=== PATIENT | female | born 1940 | race Caucasian/White ===

== ENCOUNTER → 2016-06-01 | Outpatient (CLI) | payer BC ==
[~2016-06-01] MED LIST: ASPI81TA28 PO; ATOR-22 PO; BUPR-79 PO; BUSP-8 PO; CARV6.252 PO; CMD4 PO; CPR500 PO; FLUO10CA48 PO; IMD/2 PO; LISI-461 PO; OMEP20TA PO; OXYC5TAB PO; THIA50TA3 PO
--- NOTE | 2016-06-01 12:51 | MAMMOGRAPHY REPORT ---
BILATERAL DIGITAL SCREENING MAMMOGRAM WITH CAD: 06/01/2016 CLINICAL HISTORY: Routine screening. Patient has no complaints. TECHNIQUE: Current study was also evaluated with a Computer Aided Detection (CAD) system. Bilatera l CC and MLO views were obtained. COMPARISON: Comparison is made to exams dated: 05/17/2014 mammogram, 05/14/2013 mammogram, 05/12/2012 mammogram, 05/04/2010 mammogram, 05/23/2015 mammogram, and 05/10/2011 mammogram - [facility]. BREAST COMPOSITION: There are scattered areas of fibroglandular density in both breasts. FINDINGS: No suspicious masses, calcifications, or areas of architectural distortion are noted in e ither breast. There has been no significant interval change compared to prior exams. Bilateral margot gn appearing calcifications are not significantly changed. A pacemaker overlies the left pectoralis muscle and obscures portions of the left superior posterior breast on the MLO view. IMPRESSION: ACR BI-RADS CATEGORY 2: BENIGN There is no mammographic evidence of malignancy. A 1 year screening mammogram is recommended. The p atient will receive written notification of the results. Approximately 10% of breast cancers are not detected with mammography. A negative mammographic repor t should not delay biopsy if a clinically suggestive mass is present. Lashawn Quach M.D. /:06/01/2016 12:44:20 Truck Trailer Final Inspector: Gena Rosa, [facility] letter sent: Normal 1/2 BI-RADS Code: ACR BI-RADS Category 2: Benign
== END | disposition home or self-care (01) ==
LOC: C.MAMM 11:04
PROVIDERS: ATTEND Internal Medicine
DX: Z12.31 Encounter for screening mammogram for malignant neoplasm of breast (principal)

== ENCOUNTER → 2017-06-03 | Outpatient (CLI) | payer BC ==
--- NOTE | 2017-06-03 15:04 | MAMMOGRAPHY REPORT ---
BILATERAL DIGITAL SCREENING MAMMOGRAM TOMOSYNTHESIS WITH CAD: 06/03/2017 CLINICAL HISTORY: Routine screening. TECHNIQUE: Breast tomosynthesis in addition to standard 2D mammography was performed. Current study was also evaluated with a Computer Aided Detection (CAD) system. COMPARISON: Comparison is made to exams dated: 06/01/2016 mammogram, 05/23/2015 mammogram, 05/17/2014 ma mmogram, 05/14/2013 mammogram, 05/12/2012 mammogram, and 05/10/2011 mammogram - [facility]. BREAST COMPOSITION: There are scattered areas of fibroglandular density in both breasts. FINDINGS: The right CC 2-D view is slightly degraded by patient motion. However, the corresponding r ight CC tomosynthesis images and reconstructed C-view demonstrate no evidence of motion and are deeme d adequate for evaluation. A metallic cardiac device projects over the superior left pectoralis musc le on the repeat MLO view. There are mild vascular calcifications in the breasts. Scattered benign punctate and rim calcifications in the breasts. No suspicious mass, architectural distortion or clus ter of suspicious microcalcifications is seen. IMPRESSION: ACR BI-RADS CATEGORY 1: NEGATIVE There is no mammographic evidence of malignancy. A 1 year screening mammogram is recommended. The pa tient will receive written notification of the results. Approximately 10% of breast cancers are not detected with mammography. A negative mammographic report should not delay biopsy if a clinically suggestive mass is present. Jessica Mon M.D. ay/:06/03/2017 13:46:22 Refrigeration Manager: Deana BEAVERS(R)(M), [facility] letter sent: Normal 1/2 BI-RADS Code: ACR BI-RADS Category 1: Negative
== END | disposition home or self-care (01) ==
LOC: C.MAMM 11:16
PROVIDERS: ATTEND Internal Medicine
DX: Z12.31 Encounter for screening mammogram for malignant neoplasm of breast (principal)

== ENCOUNTER → 2017-08-05 | Day surgery (SDC) | payer BC ==
[2017-07-30 09:25] VITALS: BMI 29.0
[~2017-08-05] VITALS: Ht 165.1 cm; Wt 73.5 kg
[~2017-08-05] MED LIST changes: +ATROPINE SULFATE 0.1 MG/ML 5ML SYR IV PRN; +BACITRACIN OINT 15 GM TUBE ONE; +BUPIVACAINE 0.5 % 5 MG/1 ML MPF 30ML VIAL ONE; +CARV3.122 PO; -CARV6.252 PO; +CEFAZOLIN 2000MG IV PUSH 15 ML IV SCH; +CEFAZOLIN SOD 2000MG/15 ML IV PUSH IV ONE; -CPR500 PO; +CYAN100020 PO; +EpHEDrine SULFATE INJ 50 MG/ML AMP IV PRN; +FENTANYL CITRATE INJ 50 MCG/1 ML 2 ML VIAL ONE; +LACTATED RINGER'S 1000ML 1,000 ML IV SCH; +LIDOCAINE HCL 1% 20 ML VIAL ONE; +LIDOCAINE HCL 2% 2 ML VIAL (20MG/ML) ONE; +MIDAZOLAM HCL 1 MG/ML 2ML VIAL ONE; +MoRPHine SULFATE 2 MG/ML CARP IV PRN; +ONDANSETRON INJ 2 MG/ML 2 ML VIAL ONE; +OXYC-57 PO; -OXYC5TAB PO; +OXYCODONE/ACETAMINOPHEN 5-325 TAB PO PRN; +PROPOFOL IV EMULSION 10 MG/ML 20 ML VIAL IV ONE; +SODIUM CHLORIDE 0.9% 1000ML 1,000 ML IV SCH; -THIA50TA3 PO
[2017-08-05 05:52] VITALS: BP 119/73; PULSE 74; TEMP 37.1; O2SAT 94; Ht 165.1 cm; Wt 73.5 kg
[2017-08-05 05:53] LABS: PTT PATIENT 24.5 SECONDS (21.0-31.0)
--- NOTE | 2017-08-05 06:42 | History & Physical Bridge Note ---
H&P Re-Evaluation Bridge Note: I have examined the patient, reviewed the History & Physical and in the interval since the performance of the History & Physical I have noted the following changes of clinical significance: No changes noted
--- NOTE | 2017-08-05 07:49 | [facility] Post Operative Brief Note ---
Immediate Operative Summary Operative Date Aug 05, 2017. Pre-Operative Diagnosis Muscle weakness of arms and legs Post-Operative Diagnosis Muscle weakness of arms and legs Procedure(s) Performed Biopsy Muscle on Right Leg Surgeon Dr. Gibbs Thread Cutter Surgeon(s) none Estimated Blood Loss 5 ML Findings Consistent with Post-Op Diagnosis Fluids (cc crystalloids) 500ml Specimens Fresh A. Right Leg Muscle Biopsy Drains None Anesthesia Type MAC Complication(s) none Disposition Accompanied Pt To Recover: yes Disposition: Recovery Room / PACU
--- NOTE | 2017-08-05 08:10 | Discharge Instructions ---
Discharge Instructions Date of Service Aug 05, 2017. Visit Reason for Visit: Muscle Weakness Discharge Discharge Diagnosis / Problem: S/P biopsy right leg muscle Discharge Goals Goal(s): Decrease discomfort, Improve function Activity Recommendations Activity Limitations: per Instructions/Follow-up section Lifting Limitations: none Exercise/Sports Limitations: rest today May Resume Sexual Activity: when tolerated, after two weeks Shower/Bathe: may shower/bathe in 3 days Driving or Machine Use: resume 3 days after discharge Anesthesia . Post Anesthesia Instructions: If you have had General Anesthesia or IV Sedation: * Do not drive today. * Resume driving when surgeon permits. * Do not make important decisions or sign legal documents today. * Call surgeon for: 1. Temperature elevations greater than 101 degrees F. 2. Uncontrollable pain. 3. Excessive bleeding. 4. Persistent nausea and vomiting. 5. Medication intolerance (nausea, vomiting or rash). * For nausea and vomiting use only clear liquids such as: tea, soda, bouillon until nausea subsides, then gradually increase diet as tolerated. * If you have any concerns or questions, call your surgeon's office. If physician is unavailable and it is an emergency, call 911 or go to the nearest emergency room. . Instructions / Follow-Up Instructions / Follow-Up keep the dressing on for 4 days. she can take a shower on 08/09/2017, no driving while taking pain medicine. Follow up Dr. Gibbs 1 week, Diet Recommendations Recommended Home Diet: resume previous diet Procedures Procedures Performed: Biopsy Muscle on Right Leg Pending Studies Studies pending at discharge: no Medical Emergencies . Who to Call and When: Medical Emergencies: If at any time you feel your situation is an emergency, please call 911 immediately. . Non-Emergent Contact Non-Emergency issues call your: Surgeon Call Non-Emergent contact if: you have a fever, temperature is above 100.5, your pain is not controlled, your pain is worsening, wound has increased drainage, wound has increased redness . . "Provider Documentation" section prepared by Carlos Gibbs. . [place] Drug Monitoring Program Search Results: no issues identified
--- NOTE | 2017-08-05 08:16 | Anesthesiology Progress Note ---
Anesthesia Post Op Note Date & Time Aug 05, 2017 at 08:16 Vital Signs Pain Intensity: 0 Vital Signs Past 12 Hours Date Time Temp Pulse Resp B/P (MAP) Pulse Ox O2 Delivery O2 Flow Rate FiO2 08/05/17 08:10 69 18 104/59 95 Room Air 08/05/17 08:00 70 18 94/63 95 Room Air 08/05/17 07:54 36.3 70 16 98/61 96 Room Air 08/05/17 05:52 37.1 74 18 119/73 (88) 94 Room Air Notes Mental Status: alert / awake / arousable, participated in evaluation Pt Amnestic to Procedure: Yes Nausea / Vomiting: adequately controlled Pain: adequately controlled Airway Patency, RR, SpO2: stable & adequate BP & HR: stable & adequate Hydration State: stable & adequate Anesthetic Complications: no major complications apparent
[2017-08-05 08:25] VITALS: BP 93/53; PULSE 75; TEMP 36.6; O2SAT 96
[2017-08-05 08:55] VITALS: BP 90/67; PULSE 69; TEMP 36.9; O2SAT 96
--- NOTE | 2017-08-05 14:08 | OPERATIVE REPORT ---
DATE OF OPERATION: 08/05/2017 PREOPERATIVE DIAGNOSES: Muscle weakness on both arms and legs. POSTOPERATIVE DIAGNOSIS: Same. PROCEDURE: Biopsy of right leg muscle. SURGEON: Carlos Gibbs MD ANESTHESIA: Conscious sedation plus local. ESTIMATED BLOOD LOSS: About 5 mL. FINDINGS: Muscle edema. COMPLICATIONS: None. INDICATIONS FOR THE PROCEDURE: This is a 76-year-old female who referred for muscle biopsy for her weakness in arm and legs. I did talk to the patient about the benefit, risk and alternative procedure. I indicated the risks may include, but not limited such as bleeding, infection, hematoma. The patient understands. She signed informed consent and I answered all questions. DETAILS OF PROCEDURE: We brought the patient to the OR, put the patient in the supine position. The patient received SCD on bilateral legs to prevent DVT. Also, the patient received 2 grams of Ancef IV for prophylactic antibiotics. The patient received conscious sedation by the anesthesiology. The right leg was prepped and draped in routine sterile fashion. After time out, I injected the local anesthesia by using 1% lidocaine mixed with 0.5% Marcaine on the right upper leg. Then, I made about a 2 cm incision and opened the skin, subcutaneous layer, opened the fascia and patient has muscle edema. Then, I take about 1 cm piece muscle. Hemostasis was obtained. Then, I used a 0 Vicryl, closed the fascial layer interrupted, closed subcutaneous layer by using 2-0 Vicryl, closed skin by using 4-0 Vicryl. Then, we put the dressing on. The patient tolerated the procedure well. All instrument, needle and sponge count were correct x2 at the end of case. Specimen sent to pathology. The patient transferred to recovery room in stable condition. After the procedure, I did talk to the patient's about OR, finding and procedure we did, he understands. Also, I gave them the postop care instructions. I attest to the content of the Intraoperative Record and any orders documented therein. Any exception s are noted below.
== END | disposition home or self-care (01) ==
LOC: C.ACU 04:58
PROVIDERS: ATTEND Surgery
DX: M62.81 Muscle weakness (generalized) (principal); J44.9 Chronic obstructive pulmonary disease, unspecified; I42.8 Other cardiomyopathies; I50.1 Left ventricular failure, unspecified; I11.0 Hypertensive heart disease with heart failure; E78.5 Hyperlipidemia, unspecified; F32.9 Major depressive disorder, single episode, unspecified; F41.9 Anxiety disorder, unspecified; Z90.49 Acquired absence of other specified parts of digestive tract; Z90.89 Acquired absence of other organs; Z79.82 Long term (current) use of aspirin; Z79.01 Long term (current) use of anticoagulants; Z79.899 Other long term (current) drug therapy; Z95.810 Presence of automatic (implantable) cardiac defibrillator; Z85.118 Personal history of other malignant neoplasm of bronchus and lung; Z87.891 Personal history of nicotine dependence; Z80.1 Family history of malignant neoplasm of trachea, bronchus and lung; Z82.49 Family history of ischemic heart disease and other diseases of the circulatory system

== ENCOUNTER 2018-09-22 14:23 | Inpatient (IN) ==
[2018-09-22] MEDS ORDERED: SODIUM CHLORIDE 0.9% 1000ML 1,000 ML IV SCH (14:45)
--- NOTE | 2018-09-22 14:52 | Emergency Department Note ---
Entered by Elyssa Joel acting as a scribe for Jenaro Carlton DO History of Present Illness General Chief complaint: Abdominal Pain Source: patient and other (Nurse) Mode of arrival: EMS History of Present Illness Onset (ago): day(s) 1 Location: abdomen Severity: similar to prior episodes Pain Consistency: + constant Quality: + other (Abdominal pain) Associated symptoms: + other (Falls, diarrhea) Treatments prior to arrival: none The patient is a 77 year old female presenting to the Emergency Department via EMS complaining of constant abdominal pain starting 1 day ago. The nurse reports that the patient has abdominal pain. She states that the patient has been experiencing diarrhea. She notes that the frequently falls. She adds that EMS did not provide any treatments for the patient [employer]. The patient reports that her abdomen hurts. She states that she does fall recently. She explains that she has experienced these symptoms before. She states that she took no medications for her symptoms [employer]. She adds that she normally takes Coumadin but did not take her dose last night. Home Medications Home Medications Medication Instructions Recorded Confirmed Type mirtazapine 15 mg PO HS 09/22/18 09/22/18 History tramadol 100 mg PO Q6H PRN 09/22/18 09/22/18 History Allergies Allergy/AdvReac Type Severity Reaction Status Date / Time No Known Allergies Allergy Verified 09/22/18 16:34 Past Med/Surg History Social History Preferred Language: Scottish Beliefs That Will Affect Care: None Current Living Situation: Spouse Feels Safe at Home: Yes Smoking Status: Former smoker Hx Alcohol Use: Yes Alcohol type: wine Hx Substance Use: No Review of Systems See HPI for pertinent positives & negatives. and A total of 10 systems reviewed and were otherwise negative Physical Exam Vital Signs Vital Signs - 24 hr 09/22/18 14:30 09/22/18 14:40 09/22/18 15:00 Temperature 36.6 C Temperature Source Rectal Sepsis Recent Fever Within 48 Hours No Sepsis Action Taken by Nursing No Action Required Pulse Rate 105 H 104 H 109 H Pulse Rate from SpO2 Sensor 105 H 105 H 109 H Respiratory Rate 16 13 13 Respiratory Effort / Characteristics Non-Labored Spontaneous Respiratory Depth Normal Respiratory Pattern Regular Blood Pressure 108/63 108/63 Blood Pressure Mean 78 78 Pulse Oximetry 100 97 97 Oxygen Delivery Method Room Air 09/22/18 15:29 09/22/18 15:30 09/22/18 15:31 Temperature Temperature Source Sepsis Recent Fever Within 48 Hours Sepsis Action Taken by Nursing Pulse Rate 110 H 109 H 109 H Pulse Rate from SpO2 Sensor 112 H 109 H 112 H Respiratory Rate 17 18 26 H Respiratory Effort / Characteristics Respiratory Depth Respiratory Pattern Blood Pressure Blood Pressure Mean 81 Pulse Oximetry 98 97 97 Oxygen Delivery Method 09/22/18 15:33 09/22/18 15:34 09/22/18 15:35 Temperature Temperature Source Sepsis Recent Fever Within 48 Hours Sepsis Action Taken by Nursing Pulse Rate 107 H 107 H 105 H Pulse Rate from SpO2 Sensor 107 H 107 H 105 H Respiratory Rate 33 H 23 23 Respiratory Effort / Characteristics Respiratory Depth Respiratory Pattern Blood Pressure 93/65 L Blood Pressure Mean 69 74 Pulse Oximetry 97 97 98 Oxygen Delivery Method 09/22/18 16:00 09/22/18 16:01 09/22/18 16:27 Temperature Temperature Source Sepsis Recent Fever Within 48 Hours Sepsis Action Taken by Nursing Pulse Rate 97 H 97 H 99 H Pulse Rate from SpO2 Sensor 97 H 99 H 100 H Respiratory Rate 35 H 18 18 Respiratory Effort / Characteristics Respiratory Depth Respiratory Pattern Blood Pressure 95/59 L Blood Pressure Mean 81 71 Pulse Oximetry 97 97 96 Oxygen Delivery Method 09/22/18 16:30 09/22/18 16:31 09/22/18 17:00 Temperature Temperature Source Sepsis Recent Fever Within 48 Hours Sepsis Action Taken by Nursing Pulse Rate 101 H 100 H 91 H Pulse Rate from SpO2 Sensor 100 H 100 H 91 H Respiratory Rate 16 21 21 Respiratory Effort / Characteristics Respiratory Depth Respiratory Pattern Blood Pressure 96/50 L Blood Pressure Mean 65 Pulse Oximetry 96 96 98 Oxygen Delivery Method 09/22/18 17:01 09/22/18 17:30 09/22/18 17:31 Temperature Temperature Source Sepsis Recent Fever Within 48 Hours Sepsis Action Taken by Nursing Pulse Rate 91 H 96 H 96 H Pulse Rate from SpO2 Sensor 92 H 94 H 93 H Respiratory Rate 16 19 15 Respiratory Effort / Characteristics Respiratory Depth Respiratory Pattern Blood Pressure 106/64 96/53 L Blood Pressure Mean 78 67 Pulse Oximetry 90 93 Oxygen Delivery Method 09/22/18 17:32 09/22/18 18:00 09/22/18 18:01 Temperature Temperature Source Sepsis Recent Fever Within 48 Hours Sepsis Action Taken by Nursing Pulse Rate 96 H 96 H 96 H Pulse Rate from SpO2 Sensor 96 H 96 H Respiratory Rate 12 18 18 Respiratory Effort / Characteristics Respiratory Depth Respiratory Pattern Blood Pressure 111/66 Blood Pressure Mean 81 Pulse Oximetry 98 96 Oxygen Delivery Method GENERAL: Patient is awake and anxious appearing. She appears to be in significant pain. She is diaphoretic. EYES: The conjunctivae are clear. The pupils are round and reactive. EARS, NOSE, MOUTH AND THROAT: The nose is without any evidence of any deformity. Mucous membranes are moist.Tongue is midline NECK: The neck is nontender and supple. RESPIRATORY: Normal respiratory effort is noted. There is no evidence of wheezing rhonchi or rales to auscultation. CARDIOVASCULAR: Regular rate and rhythm noted. There no murmurs rubs or gallops normal S1 normal S2 GASTROINTESTINAL: The abdomen is moderately distended and diffusely tender. Rectal exam revealed gross blood per rectum. MUSCULOSKELETAL/EXTREMITIES: There is no evidence of gross deformity. Full range of motion is noted in the hips and shoulders. SKIN: There is no obvious evidence of any rash. Pedal edema was noted bi laterally. Skin was cool and diaphoretic. NEUROLOGIC: Patient oriented to person place and situation. Strength was symmetric. Course 1437: The patient was evaluated in room C10, and a complete history and physical examination were performed. 1632: I updated the patient at this time. 1638: I discussed the patient's case with Dr. Lobito morton. He will evaluate the patient for further management. Consultations Consultation #1: I discussed the patient's case with Dr. Lobito morton. He will evaluate the patient for further management. Time: 16:38 Administered Medications Pantoprazole Sodium 40 mg/ (Dextrose) 100 mls @ 20 mls/hr IV Q5H [facility] Stop: 10/22/18 18:29 Last Admin: 09/22/18 18:43 Dose: 20 mls/hr Documented by: [id number] Ioversol (Optiray 320 100ml) 93 ml IV ONCE PRN PRN Reason: Interaction Checking Stop: 09/26/18 16:02 Last Admin: 09/22/18 16:04 Dose: 93 ml Documented by: [id number] Discontinued Medications Sodium Chloride (Nss 1000ml) 1,000 mls @ 999 mls/hr IV .Q1H1M [facility] Stop: 09/22/18 15:45 Last Infusion: 09/22/18 16:46 Dose: 0 mls/hr Documented by: [id number] Admin: 09/22/18 15:27 Dose: 999 mls/hr Documented by: [id number] Sodium Chloride (Nss 1000ml) 1,000 mls @ 999 mls/hr IV .Q1H1M ONE Stop: 09/22/18 17:29 Last Infusion: 09/22/18 17:43 Dose: 0 mls/hr Documented by: [id number] Admin: 09/22/18 16:40 Dose: 999 mls/hr Documented by: [id number] Piperacillin Sod/Tazobactam Sod (Zosyn) 4.5 gm in 120 mls @ 240 mls/hr IV NOW ONE Stop: 09/22/18 16:58 Last Infusion: 09/22/18 17:40 Dose: 0 mls/hr Documented by: [id number] Admin: 09/22/18 16:40 Dose: 240 mls/hr Documented by: [id number] Phytonadione 10 mg/ Sodium (Chloride) 51 mls @ 102 mls/hr IV ONE ONE Stop: 09/22/18 17:05 Last Infusion: 09/22/18 18:26 Dose: 0 mls/hr Documented by: [id number] Admin: 09/22/18 17:54 Dose: 102 mls/hr Documented by: [id number] Pantoprazole Sodium 80 mg/ (Dextrose) 120 mls @ 480 mls/hr IV ONE ONE Stop: 09/22/18 18:29 Last Infusion: 09/22/18 18:43 Dose: 0 mls/hr Documented by: [id number] Admin: 09/22/18 18:26 Dose: 480 mls/hr Documented by: [id number] Prothrombin Complex Concent ( (Human) 3,000 units/ Syringe) 120 mls @ 0 mls/min IV TODAY@1845 [facility]LE; Protocol Stop: 09/22/18 19:00 Last Admin: 09/22/18 19:11 Dose: 5 mls/min Documented by: [id number] Medical Decision Making Differential Diagnosis Differential diagnosis: Etiologies such as esophagitis, variceal bleed, Boerhaaves, Kossuth-Woodson tear, gastritis, peptic ulcer disease, AVM, inflammatory bowel disease, ischemia, diverticulosis, colitis, malignancy, coagulopathy, thrombocytopenia, fissure, hemorrhoid, epistaxis , as well as others were entertained. Medical Records Attestation: I reviewed the patient's medical records. Home Medications Current Medication List: was personally reviewed by me Laboratory Data Attestation: I reviewed the patient's lab results. Result diagrams: 09/22/18 15:28 09/22/18 15:28 Lab Results 09/22/18 09/22/18 09/22/18 Range/Units 15:28 15:28 15:28 WBC 22.54 H (4.8-10.8) K/uL RBC 3.40 L (4.2-5.4) M/uL Hgb 10.6 L (12.0-16.0) g/dL POC Hgb (12.0-16.0) g/dl Hct 31.8 L (37-47) % POC Hct (37-47) % MCV 93.5 (80-100) fL MCH 31.2 (25-34) pg MCHC 33.3 (32-36) g/dL RDW Std Deviation 48.9 H (36.4-46.3) fL RDW Coeff of Jodi 14.8 H (11.5-14.5) % Plt Count 331 (130-400) K/uL MPV 9.8 (7.4-10.4) fL Immature Gran % (Auto) 1.7 % Neut % (Auto) 86.7 % Lymph % (Auto) 3.9 % [place] % (Auto) 7.2 % Eos % (Auto) 0.4 % Baso % (Auto) 0.1 % Immature Gran # (Auto) 0.39 H (0.00-0.02) K/uL Neut # (Auto) 19.52 H (1.4-6.5) K/uL Lymph # (Auto) 0.89 L (1.2-3.4) K/uL [place] # (Auto) 1.62 H (0.11-0.59) K/uL Eos # (Auto) 0.10 (0-0.5) K/uL Baso # (Auto) 0.02 (0-0.2) K/uL PT Cancelled INR Cancelled APTT Cancelled PTT Ratio Cancelled POC Sodium (135-144) mEq/L Sodium 132 L (136-145) mmol/L POC Potassium (3.3-5.0) mEq/L Potassium 4.5 (3.5-5.1) mmol/L POC Chloride (101-112) mEq/L Chloride 95 L (98-107) mmol/L Carbon Dioxide 24 (21-32) mmol/L POC Total CO2 (24-31) mEq/l Anion Gap 13.0 H (3-11) POC Anion Gap (16-25) mmol/L POC BUN (7-18) mg/dl BUN 47 H (7-18) mg/dl Creatinine 1.00 (0.6-1.2) mg/dl POC Creatinine (0.6-1.3) mg/dl Est Cr Clr Drug Dosing 39.4 ml/min Est GFR ( Amer) 62.1 Est GFR (Non-Af Amer) 53.5 BUN/Creatinine Ratio 46.9 H (10-20) Glucose 139 H (70-99) mg/dl POC Glucose (other) (70-99) mg/dl Calcium 9.2 (8.5-10.1) mg/dl POC Ioniz Calcium Darcy (1.12-1.32) mmol/l Total Bilirubin 0.9 (0.2-1) mg/dl AST 193 H (15-37) U/L ALT 79 H (12-78) U/L Alkaline Phosphatase 685 H (45-117) U/L Total Protein 5.7 L (6.4-8.2) gm/dl Albumin 2.3 L (3.4-5.0) gm/dl Globulin 3.4 (2.5-4.0) gm/dl Albumin/Globulin Ratio 0.7 L (0.9-2) Lipase 101 (73-393) U/L Blood Type Antibody Screen 09/22/18 09/22/18 09/22/18 Range/Units 15:28 15:31 17:44 WBC (4.8-10.8) K/uL RBC (4.2-5.4) M/uL Hgb (12.0-16.0) g/dL POC Hgb 11.2 L (12.0-16.0) g/dl Hct (37-47) % POC Hct 33 L (37-47) % MCV (80-100) fL MCH (25-34) pg MCHC (32-36) g/dL RDW Std Deviation (36.4-46.3) fL RDW Coeff of Jodi (11.5-14.5) % Plt Count (130-400) K/uL MPV (7.4-10.4) fL Immature Gran % (Auto) % Neut % (Auto) % Lymph % (Auto) % [place] % (Auto) % Eos % (Auto) % Baso % (Auto) % Immature Gran # (Auto) (0.00-0.02) K/uL Neut # (Auto) (1.4-6.5) K/uL Lymph # (Auto) (1.2-3.4) K/uL [place] # (Auto) (0.11-0.59) K/uL Eos # (Auto) (0-0.5) K/uL Baso # (Auto) (0-0.2) K/uL PT > 90.0 H INR > 10.4 H* APTT > 139.0 H* PTT Ratio > 5.1 POC Sodium 130 L (135-144) mEq/L Sodium (136-145) mmol/L POC Potassium 4.5 (3.3-5.0) mEq/L Potassium (3.5-5.1) mmol/L POC Chloride 94 L (101-112) mEq/L Chloride (98-107) mmol/L Carbon Dioxide (21-32) mmol/L POC Total CO2 23 L (24-31) mEq/l Anion Gap (3-11) POC Anion Gap 19.0 (16-25) mmol/L POC BUN 42 H (7-18) mg/dl BUN (7-18) mg/dl Creatinine (0.6-1.2) mg/dl POC Creatinine 0.9 (0.6-1.3) mg/dl Est Cr Clr Drug Dosing ml/min Est GFR ( Amer) Est GFR (Non-Af Amer) BUN/Creatinine Ratio (10-20) Glucose (70-99) mg/dl POC Glucose (other) 148 H (70-99) mg/dl Calcium (8.5-10.1) mg/dl POC Ioniz Calcium Darcy 1.15 (1.12-1.32) mmol/l Total Bilirubin (0.2-1) mg/dl AST (15-37) U/L ALT (12-78) U/L Alkaline Phosphatase (45-117) U/L Total Protein (6.4-8.2) gm/dl Albumin (3.4-5.0) gm/dl Globulin (2.5-4.0) gm/dl Albumin/Globulin Ratio (0.9-2) Lipase (73-393) U/L Blood Type A Positive Antibody Screen NEGATIVE Imaging Data Radiologist's Impression: Radiology results as stated below per my review and the radiologist's interpretation: CT abd pelvis IV con only CT DOSE: 420.17 mGycm HISTORY: Pain GIB TECHNIQUE: Multiaxial CT images of the abdomen and pelvis were performed following the use of intravenous contrast. A dose lowering technique was utilized adhering to the principles of ALARA. COMPARISON STUDY: 09/06/2018 FINDINGS: Moderate increase in pelvic ascites. No significant abdominal or upper pelvic ascites. Slight amount of perihepatic ascites. Diffuse metastatic disease within liver is similar to slightly progressive. Prior cholecystectomy. Adenopathy is nonprogressive. Atrophy left kidney is unchanged. Right kidney is negative for hydronephrosis. Improved edematous change of the colon procedure described. IMPRESSION: 1. Moderate increase in pelvic ascites. 2. Slight increase in perihepatic ascites. 3. All remaining components of the study including diffuse hepatic metastatic change are stable to slightly progressive. 4. The edematous change of the colonic wall previously described is improved. The above report was generated using voice recognition software. It may contain grammatical, syntax or spelling errors. Electronically signed by: Ankit Duckworth M.D. 09/22/2018 4:15 PM XR chest 1V portable CLINICAL HISTORY: GIB chest pain COMPARISON STUDY: 01/02/2016 FINDINGS: Implantable cardiac pacemaker in good position. Mild emphysematous change. No acute infiltrate. Diaphragms smooth. IMPRESSION: No acute process. The above report was generated using voice recognition software. It may contain grammatical, syntax or spelling errors. Electronically signed by: Ankit Duckworth M.D. 09/22/2018 3:12 PM ECG Data Attestation: I personally reviewed and interpreted this ECG as follows: Indication: abdominal pain Rate (beats per minute): 104 Rhythm: sinus tachycardia Findings: + ST depression (Diffusely) and + T-wave inversion; no ectopy Comparison ECG Date: from (09/06/18) Change: the following changes noted (Increased rate otherwise no change. ) Blood Pressure Blood Pressure Findings: Low blood pressure Blood Pressure Disposition: further management by hospitalist AMAIRANI Mclean The patient is a 77-year-old female who presented to the emergency department for an evaluation of abdominal pain. Patient has had a history of metastatic cancer to the liver. She also takes Coumadin. Her INR is normally followed very closely but given her metastatic disease to her liver I feel this is why her INR is supratherapeutic at this time. She was treated with IV fluids as well as vitamin K. She was also given Kcentra in the emergency department. I discussed patient's laboratory and radiographic studies with her. I also discussed her case with the on-call [facility] hospitalist. They have agreed to evaluate the patient in the emergency department for further management and disposition. The patient did have anemia compared to her baseline. Impression & Plan Lower GI bleed, Abdominal pain, Elevated INR, Anemia Critical Care Time I have personally spent greater than 45 minutes of critical care time in the direct management of this patient. This includes bedside care, interpretation of diagnostic studies, and testing, discussion with consultants, patient, and family members, and other required patient management activities. This 45 minutes is in excess of all separately billable procedures. Critical Care Time: Yes Total Critical Care Time: 45 Discharge Plan Visit Data Chief Complaint: Abdominal Pain ED Provider: Jenaro Carlton Discharge Problem: Lower GI bleed, Abdominal pain, Elevated INR, Anemia Patient Disposition: Being Evaluated by Hospitalist Discharge Instructions Interventions: ED Discharge Assessment Last Done: 09/22/18 19:17 Discharge Problem: Abdominal pain Qualifiers: Abdominal location: unspecified location Qualified Code(s): R10.9 - Unspecified abdominal pain Anemia Qualifiers: Anemia type: unspecified type Qualified Code(s): D64.9 - Anemia, unspecified The scribe's documentation has been prepared under my direction and personally reviewed by me in its entirety. I confirm that the note above accurately reflects all work, treatment, procedures, and medical decision making performed by me.
--- NOTE | 2018-09-22 15:13 | XRay Report ---
XR chest 1V portable CLINICAL HISTORY: GIB chest pain COMPARISON STUDY: 01/02/2016 FINDINGS: Implantable cardiac pacemaker in good position. Mild emphysematous change. No acute infiltr ate. Diaphragms smooth. IMPRESSION: No acute process. The above report was generated using voice recognition software. It may contain grammatical, syntax or spelling errors. Electronically signed by: Ankit Duckworth M.D. 09/22/2018 3:12 PM
[2018-09-22 15:39] LABS: Basophils # (auto) 0.02 K/uL (0-0.2); Basophils % (auto) 0.1 %; Eosinophils % (auto) 0.4 %; Hematocrit (blood only) 31.8 % (37-47); Hemoglobin 10.6 g/dL (12.0-16.0); Immature Granulocytes # (auto) 0.39 K/uL (0.00-0.02); Immature Granulocytes % (auto) 1.7 %; Lymphocytes # (auto) 0.89 K/uL (1.2-3.4); Lymphocytes % (auto) 3.9 %; Mean Corpuscular Hgb Conc 33.3 g/dL (32-36); Mean Corpuscular Volume 93.5 fL (80-100); Mean Platelet Volume 9.8 fL (7.4-10.4); Monocytes # (auto) 1.62 K/uL (0.11-0.59); Monocytes % (auto) 7.2 %; Neutrophils # (auto) 19.52 K/uL (1.4-6.5); Neutrophils % (auto) 86.7 %; Platelet Count 331 K/uL (130-400); RDW Coefficient of Variation 14.8 % (11.5-14.5); RDW Standard Deviation 48.9 fL (36.4-46.3); White Blood Count 22.54 K/uL (4.8-10.8)
[2018-09-22 15:44] LABS: iSTAT Creatinine 0.9 mg/dl (0.6-1.3); iSTAT Hemoglobin 11.2 g/dl (12.0-16.0); iSTAT Ionized Calcium 1.15 mmol/l (1.12-1.32); iSTAT Potassium 4.5 mEq/L (3.3-5.0)
[2018-09-22 15:59] LABS: Albumin Level 2.3 gm/dl (3.4-5.0); BUN Creatinine Ratio 46.9 (10-20); Calcium 9.2 mg/dl (8.5-10.1); Creatinine Clr Calc Pharmacy 39.4 ml/min; Est GFR (African American) 62.1; Est GFR (Non-African American) 53.5; Potassium 4.5 mmol/L (3.5-5.1)
[2018-09-22 16:02] LABS: Albumin Globulin Ratio 0.7 (0.9-2); Bilirubin,Total 0.9 mg/dl (0.2-1); Globulin 3.4 gm/dl (2.5-4.0); Total Protein 5.7 gm/dl (6.4-8.2)
[2018-09-22] MEDS ORDERED: IOVERSOL 100ml IV PRN (16:03)
--- NOTE | 2018-09-22 16:17 | CT Scan Report ---
CT abd pelvis IV con only CT DOSE: 420.17 mGycm HISTORY: Pain GIB TECHNIQUE: Multiaxial CT images of the abdomen and pelvis were performed following the use of intrave nous contrast. A dose lowering technique was utilized adhering to the principles of ALARA. COMPARISON STUDY: 09/06/2018 FINDINGS: Moderate increase in pelvic ascites. No significant abdominal or upper pelvic ascites. Slig ht amount of perihepatic ascites. Diffuse metastatic disease within liver is similar to slightly progressive. Prior cholecystectomy. Ad enopathy is nonprogressive. Atrophy left kidney is unchanged. Right kidney is negative for hydronephr osis. Improved edematous change of the colon procedure described. IMPRESSION: 1. Moderate increase in pelvic ascites. 2. Slight increase in perihepatic ascites. 3. All remaining components of the study including diffuse hepatic metastatic change are stable to sl ightly progressive. 4. The edematous change of the colonic wall previously described is improved. The above report was generated using voice recognition software. It may contain grammatical, syntax or spelling errors. Electronically signed by: Ankit Duckworth M.D. 09/22/2018 4:15 PM
[2018-09-22] MEDS ORDERED: PIPERACILL/TAZOBAC CONSULT ACTIVE PRN (16:29)
[2018-09-22] MEDS ORDERED: SODIUM CHLORIDE 0.9% 1000ML 1,000 ML IV ONE (16:29)
[2018-09-22] MEDS ORDERED: PIPERACILLIN/TAZOBACTAM 4.5 GM/120 ML BAG IV ONE (16:29)
[2018-09-22] MEDS ORDERED: PHYTONADIONE 10 MG in SODIUM CHLORIDE 0.9% 50 ML IV ONE (16:36)
[2018-09-22] MEDS ORDERED: PANTOprazole 80 MG in DEXTROSE 5% 100 ML IV ONE (18:15)
[2018-09-22 18:19] LABS: Partial Thromboplastin Ratio > 5.1; Prothrombin Time > 90.0 Seconds (9.0-12.0)
[2018-09-22 18:22] LABS: INR > 10.4 (0.9-1.1); Partial Thromboplastin Time > 139.0 Seconds (21.0-31.0)
[2018-09-22] MEDS: PANTOprazole 40 MG in DEXTROSE 5% 100 ML IV SCH (18:43)
[2018-09-22] MEDS ORDERED: PROTHROMBIN COMP CONC- KCENTRA 3,000 UNITS in SYRINGE 0 ML IV SCH (18:45)
[2018-09-22] MEDS ORDERED: SODIUM CHLORIDE 0.9% 250 ML IV PRN ×2 (19:40→20:29)
--- NOTE | 2018-09-22 19:59 | Critical Care Consultation ---
Date of Consultation September 22, 2018 Assessment & Plan (1) Admitted to intensive care unit: 77 yo female patient admitted to the ICU with GI bleed lily rain but unsure. She developed hypovolumic shock with BP readings as low as 76/52 and tachycardia. Patient responded to IVF. The etiology of the bleed is likely coagulopathy which is multifactorial iatrogenic and liver affection with metatatic lung cancer. This is in the setting of recurrent metastatic adenocardcinoma of the lung. 1- neurologic. Patient is on tramadol at home. Will use fentanyl 50 mcg PRN IV Q2 for hemodynamic freindly narcotic 2- Respiratory 3- CV she is reported to have been placed on metoprolol and lisnopril but is not taking them. Hold all antihypertensives Hold statins IV Fluid resuscitation with LR t 125 ml/hr transfuse with 1 UPRBC Hb/Hct Q6 monitoring hemodynamics in the ICU maintain MAP >65 mmHg 4- GI PPI drip NPO for EGD and colonoscopy tomorrow wanted to talk to doctor socorro before endoscopy. 5- renal monitor and replete lytes use LR for resuscitation maintain UO >0.5 ml/Kg BW-hr Hematology Hb Hct Q4 transfuse 1 PRBC and decide further based on Hb level so far no more GI bleeding noted ID no foci of infection. It is unclear whether she has cirrhosis but there is no ascitis on exam and therefore no risk of acute peritonitis DVT prophylaxis with SCDs for now Will use heparin 48-72 hours after stabilization of GI bleed. Patient is critically ill and I spent a total of 50 min and she agrees to be resuscitated acutely but she would not want to be on life support for protracted amount of time. Present on Admission?: Yes History of Present Illness Reason for Consultation: GI bleed with shock Requesting Physician: Dr Robin Attending Physician: Ashok Vargas MD History of Present Illness This is a 77 yo female patient who is known to have had Adenocarcinoma of the lung resected by Dr Simpson in 12/2015 via RL Lobectomy and LN dissection at the time the margins of the lobe were free of tumor and LN were free of tumor. She is also known to have CHF with Echo in 2013 showing EF 35% and another one from [facility] in showing EF 42% . She is s/p AICD placement. However, according to note from Dr Mcelroy (06/2018) clinic the patient was placed on coumadin due to presumed LE thromboembolic disease given myocardial wall infarction. Patient is also known to have HTn, Depression and has been examined recently for myopathy and her statins were stopped. She presented to Dr Fang who sent her for Biopsy of the liver and it did show adenocarcinoma per Dr Robin but there is not official report yet on the pathology. This am after taking her daily tramadol for upper abdominal and back pain (around 7-8 am) she developed multiple episodes of dark melanotic BM and EMS transferred her to ED where she was found to be hypotensive and received 2 liters crystalloids typed an cross matched. The patient had been kept on her long standing dose of 4 mg COumadin and INR in the ED was >10 so she was given both vitamin K and K centra. Her INR dropped to 1.8 She was started on 125 ml of LR by me and at the bedside she absolutely denied chest pain dizziness and SOB. Her only complaint was upper abdominal pain. Allergies Allergy/AdvReac Type Severity Reaction Status Date / Time No Known Allergies Allergy Verified 09/22/18 16:34 Home Medications Home Medications Medication Instructions Recorded Confirmed Type mirtazapine 15 mg PO HS 09/22/18 09/22/18 History tramadol 100 mg PO Q6H PRN 09/22/18 09/22/18 History Patient History Medical History Gastrointestinal hemorrhage with melena Lung mass Lower GI bleed (Acute) Elevated INR (Acute) Anemia (Acute) Bundle branch block DVT (deep venous thrombosis) on coumadin Non-ischemic cardiomyopathy s/p AICD placement Thrombocytopenia Cardiac defibrillator in place (Acute) TTE 2015 EF: 42% H/O: lung cancer (Acute) with mets Surgical History S/P implantation of automatic cardioverter/defibrillator (AICD) History of appendectomy (Acute) History of cholecystectomy (Acute) Social History Preferred Language: Citizen Of [place] Communication Ability: Effective Clerk Funeral Detail Required: No Beliefs That Will Affect Care: None Current Living Situation: Spouse and Family Current Living Situation Comment: Lives with daughter. Other Information That Helps Us Care for You: No Feels Safe at Home: Yes Safety Concerns: Feels Safe At This Time Smoking Status: Current some day smoker Tobacco Type: cigarettes Cigarettes Per Day: 1-2 Do You Dip or Chew Tobacco: No Tobacco Cessation Education Requested by Patient: No Hx Alcohol Use: Yes Alcohol type: wine Hx Substance Use: No Review of Systems Review of Systems: All systems reviewed & are unremarkable except as noted in HPI & below Physical Exam Constitutional: pale ill looking but in no apparent distress Eyes: PERRL, conjunctivae normal, anicteric sclerae Neck: trachea midline, no thyromegaly supple Respiratory: normal respiratory effort, lungs clear to auscultation Cardiovascular: tachycardiac S1 S2 no murmurs HR 100-110 Gastrointestinal (Abdomen): diminished BS (given that she had bleed I would expect her to have hyperactive BS but she did not) Epigastric tenderness direct not rebound Musculoskeletal: no cyanosis or clubbing, extremities motor strength 5/5 Skin: pale clammy Neurologic: No gross focal motor deficits Results & Data Vital Signs (Past 12 Hours) Vital Signs Temp Pulse Resp BP Pulse Ox 09/22/18 19:19 103 H 14 76/52 L 98 09/22/18 19:17 103 H 16 85/55 L 97 09/22/18 19:00 99 H 18 97 09/22/18 18:31 100 H 23 101/65 97 09/22/18 18:30 100 H 21 98 09/22/18 18:01 96 H 18 111/66 09/22/18 18:00 96 H 18 96 09/22/18 17:32 96 H 12 98 09/22/18 17:31 96 H 15 96/53 L 09/22/18 17:30 96 H 19 93 09/22/18 17:01 91 H 16 106/64 90 09/22/18 17:00 91 H 21 98 09/22/18 16:31 100 H 21 96/50 L 96 09/22/18 16:30 101 H 16 96 09/22/18 16:27 99 H 18 95/59 L 96 09/22/18 16:01 97 H 18 97 09/22/18 16:00 97 H 35 H 97 09/22/18 15:35 105 H 23 98 09/22/18 15:34 107 H 23 93/65 L 97 09/22/18 15:33 107 H 33 H 97 09/22/18 15:31 109 H 26 H 97 09/22/18 15:30 109 H 18 97 09/22/18 15:29 110 H 17 98 09/22/18 15:00 109 H 13 97 09/22/18 14:40 36.6 C 104 H 13 108/63 97 09/22/18 14:30 105 H 16 108/63 100
[2018-09-22] MEDS ORDERED: TRAMADOL HCL 50 MG TABLET PO PRN (20:17)
[2018-09-22] MEDS ORDERED: OXYCODONE HCL IR 5 MG TAB (IMMEDIATE RELEASE) PO PRN (20:17)
[2018-09-22] MEDS ORDERED: ICU PROTOCOL FOR HYPERGLYCEMIA PRN (20:17)
[2018-09-22] MEDS: MIRTAZAPINE TAB 15 MG TAB PO SCH (21:00)
[2018-09-22 21:24] LABS: Hematocrit (blood only) 27.4 % (37-47)
[2018-09-22] MEDS: MoRPHine SULFATE 4 MG/ML 1 ML CARP\\VIAL IV PRN (21:48)
--- NOTE | 2018-09-22 21:49 | History and Physical Report ---
DATE OF ADMISSION: 09/22/2018 CHIEF COMPLAINT: GI bleed. HISTORY OF PRESENT ILLNESS: A 77-year-old female with past medical history significant for hyperlipidemia, interstitial lung disease, hypertension, GERD, inclusion body myositis, osteoporosis, major depression. The patient with status post right lower lobectomy and mediastinal lymph node dissection on 12/2015 when she was found to have right lower lobe spiculated nodule on 10/2015. It was adenocarcinoma and recently she had a followup CT scan of the chest showed multiple liver lesions and she is status post biopsy of liver mass on 09/05/2018. Currently, initial pathology shows poorly differentiated adenocarcinoma. Initial right lower lobe lesion was noted to be of nonsmall cell lung cancer stage IIa, supposed to follow with Hematology/Oncology coming week. The patient also has nonischemic cardiomyopathy with alternating bundle branch block and beta yuliya intolerance causing lightheadedness. In 06/2013 her EF was 35%, status post ICD. There was presumed cardioembolic phenomena involving lower extremities in the setting of dilated cardiomyopathy and anterior apical scarring and she is on Coumadin and recent echo in 11/2015 showed EF of 42%. Presents with GI bleed.The patient says she initially had some black stools and then started to have a lot of bright red per rectum whole night last night and then also today morning. Right now the bleeding seems to have stopped. Hemoglobin dropped from 13.5 to 10.6 in the last few days. Blood pressure was on lower side. The patient denies any nausea, no vomiting, no chest pain, no shortness of breath, has some dry cough with whitish phlegm. No headache, no blurred vision, no earache, no runny nose, no sore throat. Has poor appetite since July 28. She thinks she lost a lot of weight. Normal bladder movements. She thought she might have a short period of hematuria but that has stopped now. No swelling in lower extremities. Ambulates with a cane in the home and with the walker when she goes outside.Complains of having pain in her right upper abdomen below the ribcage and radiating to back. She is taking pain medications regularly. As per daughter, the patient says since last 2 weeks she is taking only Remeron, Coumadin and pain medications. Stopped taking all other medications and as she was told to stop rest of the medications by [facility]. The patient's INR was unmeasurable in the ER, she was given IV vitamin K 10 mg. ALLERGIES: No known drug allergies. PAST MEDICAL HISTORY: As mentioned above. PAST SURGICAL HISTORY: Colonoscopy, EGDs, defibrillator placement, insertion of lens prosthesis, muscle biopsy of the right leg, cholecystectomy. MEDICATIONS: Supposed to be on tramadol 50 mg every 6 hours p.r.n., cephalexin 333 mg daily, Remeron 50 mg p.o. at bedtime, oxycodone 5 mg every 6 hours p.r.n., Wellbutrin 150 mg p.o. b.i.d., Prilosec 20 mg daily, Prozac 10 mg p.o. daily, warfarin 4 mg as directed, buspirone 10 mg p.o. b.i.d., Coreg 3.125 mg p.o. b.i.d., vitamin D 1000 units p.o. daily, vitamin B12 1000 mcg daily, aspirin 81 mg p.o. daily, but the patient currently taking only Remeron, Coumadin and pain medications. FAMILY HISTORY: Significant for mother had CHF. Father, lung cancer. SOCIAL HISTORY: , lives with her and daughter, has smoked 0.1 pack a day for 30 years. Alcohol occasional. No drug use. REVIEW OF SYMPTOMS: As per HPI. Rest of review of systems negative. PHYSICAL EXAMINATION: GENERAL: The patient is of moderate build, not in acute distress. VITAL SIGNS: Temperature 36.6, pulse 96, respiratory rate 15, blood pressure 96/53, oxygen 93% room air. HEENT: No pallor, no icterus. Pupils equal, round, reactive to light. NECK: No neck mass, no carotid bruit. CARDIOVASCULAR: S1, S2 heard, regular rate and rhythm, no murmur, no gallop. RESPIRATORY SYSTEM: Normal AP diameter. No accessory muscle use. No wheezing, no crackles. ABDOMEN: Soft, bowel sounds present. Mild discomfort in the right upper quadrant. No guarding, no rigidity. No distention. CENTRAL NERVOUS SYSTEM: Cranial nerves II-XII grossly nonfocal. EXTREMITIES: No edema, no erythema. LABS: WBC 22,000, hemoglobin 10.6, hematocrit 31.8, platelets 331. Sodium 132, potassium 4.5, chloride 195, CO2 24, BUN 47, creatinine 1, serum glucose 139, calcium 9.2, total bilirubin 0.9, AST 193, ALT 79, alkaline phosphatase of 685. Lipase 101. Chest x-ray: No acute process seen. CT of abdomen and pelvis with IV contrast moderate increase in pelvic ascites, slight increase in perihepatic ascites, diffuse hepatic metastatic changes, stable, slightly progressive. EKG: Shows sinus tachycardia at a rate of 104. Nonspecific ST abnormalities. ASSESSMENT AND PLAN: This 77-year-old female who presents with gastrointestinal bleed. 1. Gastrointestinal bleeding, initially black stool then bright red blood per rectum. INR is supratherapeutic on admission. Received IV vitamin K 10mg in the Emergency Room. We will also give Kcentra. We will start on Protonix drip. Bowel prep. Closely monitor in the Intensive Care Unit. Hemoglobin and hematocrit q. 6 hours. We will get blood consent and transfuse as needed, possible esophagogastroduodenoscopy and colonoscopy in a.m. IV fluids, we will monitor the hemodynamics. 2. Leukocytosis, etiology unclear. We will follow blood cultures and urine cultures. Empirically started on IV Zosyn in the Emergency Room, which we will continue. Follow the cultures. 3. History of nonischemic cardiomyopathy, ejection fraction of 35% in 2013 and repeat echo in 11/2015 showed an ejection fraction of 42%. Initially she had ICD placement. She is on Coumadin for presumed cardioembolic phenomenon affecting lower extremity. INR is supratherapeutic. Holding the Coumadin, getting fluids. Monitor for volume overload. Consider cardiac consult regarding restarting or stopping Coumadin. 4. Metastatic cancer, history of lung cancer, right middle and lower lobe lung cancer in 2016, nonsmall cell cancer status post lobectomy, now recently found to have liver mets, status post biopsy on 09/05/2018 showing poorly differentiated adenocarcinoma, most likely coming from the lungs. Supposed to see Hematology/Oncology next week. We will consult Hematology/Oncology for further recommendation when more stable. Liver mets possibly causing elevated INR. Getting IV vitamin and Kcentra. We will closely monitor and pain control. 5. Inclusion body myositis: Has some lower extremity pain, but not significant. Continue her pain medication. 6. Depression. Continue Remeron. 7. Not taking medications for heart failure. May need to consider cardiology consult. 8. Deep venous thrombosis prophylaxis, sequential compression devices for now. 9. Disposition: Close monitoring in the Intensive Care Unit. 10. Code status, patient wants to be DNR, but daughter wants her to be full code, so they want to be full code for now until further discussion. TOTAL CRITICAL CARE TIME: Forty-five minutes. BÁRBARA
[2018-09-22] MEDS ORDERED: POLYETHYLENE GLYCOL 3350 238 GM BTL PO SCH (22:00)
[2018-09-22] MEDS: SODIUM CHLORIDE 0.9% 1000ML 1,000 ML IV SCH (23:15)
[2018-09-23] MEDS: PANTOprazole 40 MG in DEXTROSE 5% 100 ML IV SCH ×5 (00:48→20:28)
[2018-09-23 02:35] LABS: Nucleated RBC # (auto) 0.15 K/uL (0-0); Nucleated RBC % (auto) 0.8 %
[2018-09-23 03:30] LABS: Hematocrit (blood only) 34.9 % (37-47); Hemoglobin 11.6 g/dL (12.0-16.0); Mean Corpuscular Hgb Conc 33.2 g/dL (32-36); Mean Corpuscular Volume 93.1 fL (80-100); Mean Platelet Volume 8.7 fL (7.4-10.4); Platelet Count 73 K/uL (130-400); RDW Coefficient of Variation 14.8 % (11.5-14.5); RDW Standard Deviation 48.7 fL (36.4-46.3); Red Blood Count 3.75 M/uL (4.2-5.4); White Blood Count 19.49 K/uL (4.8-10.8)
[2018-09-23 03:31] LABS: Basophils # (auto) 0.05 K/uL (0-0.2); Basophils % (auto) 0.3 %; Eosinophils % (auto) 0.5 %; Immature Granulocytes # (auto) 0.38 K/uL (0.00-0.02); Immature Granulocytes % (auto) 1.9 %; Lymphocytes # (auto) 0.97 K/uL (1.2-3.4); Monocytes # (auto) 2.13 K/uL (0.11-0.59); Monocytes % (auto) 10.9 %; Neutrophils # (auto) 15.86 K/uL (1.4-6.5); Neutrophils % (auto) 81.4 %; Platelet Estimate Decreased (Normal); Polychromasia 1+; Toxic Vacuolation 2+
[2018-09-23 05:08] LABS: INR 1.8 (0.9-1.1); Partial Thromboplastin Ratio 1.4; Partial Thromboplastin Time 36.9 Seconds (21.0-31.0); Prothrombin Time 17.5 Seconds (9.0-12.0)
[2018-09-23 05:18] LABS: Albumin Level 1.9 gm/dl (3.4-5.0); BUN Creatinine Ratio 56.1 (10-20); Bilirubin Direct 0.9 mg/dl (0-0.2); Calcium 7.7 mg/dl (8.5-10.1); Creatinine Clr Calc Pharmacy 41.5 ml/min; Magnesium 1.8 mg/dl (1.8-2.4); Potassium 4.6 mmol/L (3.5-5.1)
[2018-09-23 05:56] LABS: Bilirubin,Total 1.3 mg/dl (0.2-1); Total Protein 4.5 gm/dl (6.4-8.2); Troponin I 0.137 ng/ml (0-0.045)
[2018-09-23] MEDS: MoRPHine SULFATE 4 MG/ML 1 ML CARP\\VIAL IV PRN (08:02)
[2018-09-23] MEDS: SODIUM CHLORIDE 0.9% 1000ML 1,000 ML IV SCH ×2 (08:03→17:52)
[2018-09-23 08:17] LABS: Hemoglobin 10.8 g/dL (12.0-16.0)
--- NOTE | 2018-09-23 08:47 | Gastrointestinal Consultation ---
Date of Consultation September 23, 2018 Assessment & Plan (1) Gastrointestinal hemorrhage with melena: GI bleeding in the setting of supratherapuetic INR. This may be caused by either upper (as it began with melena) or lower GI bleeding as her more recent BMs are liquid, red. Differentials considered are ulcer disease, esophagitis, ischemic colitis. 1. We would like to offer this pt EGD and colonoscopy. Benefits, risks discussed. 2. Pt and are unsure if they would like to proceed. They would like time to speak with Oncology prior to deciding. 3. Please continue PPI drip, NPO. Please notify us is pt agrees to EGD today and depend on results of EGD, eventual colonoscopy. (2) Elevated LFTs: Likely secondary to diffuse hepatic mets. CT without mention of bile duct obstruction. Would follow LFTs. Present on Admission?: Yes Supervising Physician Co-Signing Physician Notes I saw and evaluated the patient. We are consulted for question of gastrointestinal bleeding. This morning I did evaluate the patient with her family who is at bedside. They are presently not interested in endoscopic evaluation. Of note she did present with an INR that was greater than 10. Physical examination Patient with mild confusion but answers questions today No abdominal tenderness noted Impression: Patient with a question of gastrointestinal bleeding most likely related to over anticoagulation. At this point the patient and her family are not interested in aggressive endoscopic evaluation given her metastatic disease. At this point we would suggest a clear liquid diet and continuation of Protonix drip for another 48 hours. After that she can be transitioned to Protonix 1 time daily. Should the patient and her family decide they would like evaluation then we are certainly happy to provide upper endoscopic support and if negative then colonoscopy. History of Present Illness Reason for Consultation: Lower GI bleed Requesting Physician: Dr. Robin Attending Physician: Ashok Vargas MD History of Present Illness Ms. Twila Pan, who goes by the name, "Digna," is a 77 yr old female, retired primary school teacher librarian with a PMH of right lower lobe adenocarcinoma S/P lobectomy w/o chemo or radiation in 2017. Recently liver lesions were seen and bx was positive for adenocarcinoma, suggestive of liver mets. Also with non ischemic cardiomyopathy, EF 35%, presumed lower ext thrombus on coumadin, hyperlipidemia, interstitial lung disease, hypertension,GERD, inclusion body myositis, osteoporosis, major depression who presented yesterday for rectal bleeding. GI is consulted for a lower GI bleed. She reports black BMs starting on Sun night (2 days ago), initially formed, now liquid. Her nurse tells me that more recent BMs are dark red, liquid, around 3 AM and then again approx 300cc at 8AM. The pt reports a band like distribution of upper abdomen/lower chest pain that began at the same time as the bleeding and returns at the end of each analgesic dosing interval. She denies any heartburn or reflux. On arrival, INR was > 10 and it was reverse to 1.8 Hb was 10.6, down from 13.5 on 09/06. She received one unit of RBCs and this morning's Hb is 10.8. BUN is 53. Her platelets were low at 121 on arrival and are 73 today. LFTs are elevated: Bili 1.3, AST 308, Alk 82, Alk P 504. Troponin is also elevated. CT with pelvic ascites, diffuse colon wall thickening, and liver mets. She was started on a heparin drip which was held early this morning. She is awake, alert, oriented. She and her do not wish to undergo EGD until they are able to talk with Dr. Dakotah Fang and they expect that will happen around 10 this morning. She refused the colonoscopy prep. Allergies Allergy/AdvReac Type Severity Reaction Status Date / Time No Known Allergies Allergy Verified 09/22/18 16:34 Home Medications Home Medications Medication Instructions Recorded Confirmed Type mirtazapine 15 mg PO HS 09/22/18 09/22/18 History tramadol 100 mg PO Q6H PRN 09/22/18 09/22/18 History Patient History Medical History Gastrointestinal hemorrhage with melena Lung mass Lower GI bleed (Acute) Elevated INR (Acute) Anemia (Acute) Bundle branch block DVT (deep venous thrombosis) on coumadin Non-ischemic cardiomyopathy s/p AICD placement Thrombocytopenia Cardiac defibrillator in place (Acute) TTE 2015 EF: 42% H/O: lung cancer (Acute) with mets Surgical History S/P implantation of automatic cardioverter/defibrillator (AICD) History of appendectomy (Acute) History of cholecystectomy (Acute) Social History Preferred Language: [place] Communication Ability: Effective It Engineer Required: No Beliefs That Will Affect Care: None Current Living Situation: Spouse and Family Current Living Situation Comment: Lives with daughter. Other Information That Helps Us Care for You: No Feels Safe at Home: Yes Safety Concerns: Feels Safe At This Time Smoking Status: Current some day smoker Tobacco Type: cigarettes Cigarettes Per Day: 1-2 Do You Dip or Chew Tobacco: No Tobacco Cessation Education Requested by Patient: No Hx Alcohol Use: Yes Alcohol type: wine Hx Substance Use: No Review of Systems Review of Systems: ROS: Gen: + generalized weakness, + recent falls. No fevers, chills or sweats Eyes: No eye redness, or pain, no recent vision changes Resp: No SOB, no cough Cardio: No palpitations/irregular beats, no chest pain GI: + upper abdomen pain x 2 days, diarrhea (black/dark red). No nausea/vomiting : Denies pain on urination Skin: No jaundice, itching or new rashes Constitutional: +weakness, weight loss, denies fevers Physical Exam Constitutional: WD/WN, vitals as above well developed, + ill appearing and + thin Eyes: PERRL, conjunctivae normal, anicteric sclerae ENMT: external ear and nose normal, oropharynx normal Neck: trachea midline, no thyromegaly Respiratory: normal respiratory effort, lungs clear to auscultation Auscultation: + diminished lung sounds (slightly in the right lower lobe) Cardiovascular: RRR, no murmur, no edema Gastrointestinal (Abdomen): normal bowel sounds, soft, nontender, no hep atosplenomegaly (no current tenderness on palpation but just recieved pain meds) Skin: no rashes, warm and dry pale Neurologic: PERRL, EOMI, accommodation nl, no face palsy, no dysarthria Psychiatric: A+Ox3, euthymic affect Lymphatic: no cervical or axillary lymphadenopathy Results & Data Vital Signs (Past 12 Hours) Vital Signs Temp Pulse Resp BP Pulse Ox 09/23/18 06:31 108 H 15 97 09/23/18 06:30 109 H 15 95 09/23/18 06:16 108 H 20 100/55 L 96 09/23/18 06:15 108 H 41 H 95 09/23/18 06:00 107 H 20 92 09/23/18 05:46 108 H 21 115/64 94 09/23/18 05:45 108 H 18 95 05/28/19 05:31 105 H 21 109/59 L 95 09/23/18 05:30 105 H 18 95 09/23/18 05:16 108 H 14 117/60 94 09/23/18 05:15 109 H 20 95 09/23/18 05:01 106 H 19 119/61 94 09/23/18 05:00 107 H 20 94 09/23/18 04:46 107 H 22 107/71 93 09/23/18 04:45 108 H 20 93 09/23/18 04:31 106 H 20 112/63 93 09/23/18 04:30 106 H 20 95 09/23/18 04:16 109 H 20 120/68 96 09/23/18 04:15 108 H 22 95 09/23/18 04:01 108 H 18 117/65 96 09/23/18 04:00 108 H 17 97 09/23/18 03:46 106 H 28 H 108/44 L 94 09/23/18 03:45 106 H 37 H 94 09/23/18 03:32 109 H 20 117/57 L 83 L 09/23/18 03:30 108 H 27 H 90 09/23/18 03:16 109 H 21 108/45 L 95 09/23/18 03:15 110 H 22 91 09/23/18 03:01 106 H 25 H 110/64 95 09/23/18 03:00 106 H 21 95 09/23/18 02:46 105 H 18 118/58 L 95 09/23/18 02:45 105 H 17 96 09/23/18 02:31 105 H 17 117/68 94 09/23/18 02:30 105 H 16 94 09/23/18 02:16 110 H 24 92/78 L 09/23/18 02:15 111 H 12 94 09/23/18 02:01 113 H 18 117/57 L 93 09/23/18 02:00 114 H 16 92 09/23/18 01:46 107 H 19 116/58 L 93 09/23/18 01:45 107 H 22 94 09/23/18 01:31 108 H 17 117/68 94 09/23/18 01:30 108 H 16 94 09/23/18 01:16 108 H 17 117/73 95 09/23/18 01:15 108 H 15 93 09/23/18 01:01 108 H 24 110/66 94 09/23/18 01:00 108 H 16 93 09/23/18 00:46 108 H 17 115/64 94 09/23/18 00:45 107 H 16 94 09/23/18 00:34 107 H 17 112/63 95 09/23/18 00:30 107 H 15 09/23/18 00:15 107 H 16 09/23/18 00:01 107 H 16 116/56 L 97 09/23/18 00:00 107 H 17 96 09/22/18 23:46 106 H 16 106/57 L 96 09/22/18 23:45 106 H 17 94 09/22/18 23:40 36.6 C 107 H 16 101/57 L 93 09/22/18 23:31 107 H 23 101/57 L 93 09/22/18 23:30 107 H 16 95 09/22/18 23:16 107 H 17 98/54 L 95 09/22/18 23:15 107 H 16 93 09/22/18 23:04 108 H 18 96/55 L 94 09/22/18 23:02 108 H 16 83/45 L 94 09/22/18 23:00 108 H 14 94 09/22/18 22:46 108 H 23 103/48 L 95 09/22/18 22:45 110 H 18 96 09/22/18 22:31 109 H 19 124/50 L 95 09/22/18 22:30 109 H 14 95 09/22/18 22:25 36.5 C 106 H 17 103/48 L 94 09/22/18 22:16 110 H 17 94/56 L 96 09/22/18 22:15 110 H 21 93 09/22/18 22:13 112 H 15 85/66 L 96 09/22/18 22:01 108 H 17 90/51 L 95 09/22/18 22:00 107 H 19 94 09/22/18 21:55 36.8 C 111 H 20 102/58 L 94 09/22/18 21:46 108 H 20 102/58 L 95 09/22/18 21:45 109 H 18 95 09/22/18 21:31 108 H 20 105/59 L 95 09/22/18 21:30 108 H 20 96 09/22/18 21:25 36.3 C L 109 H 20 105/59 L 96 09/22/18 21:16 109 H 18 106/60 95 09/22/18 21:15 108 H 22 96 09/22/18 21:10 36.6 C 108 H 17 101/57 L 96 09/22/18 21:05 108 H 16 101/57 L 94 09/22/18 21:01 107 H 23 103/64 95 09/22/18 21:00 108 H 13 95 09/22/18 20:53 36.6 C 106 H 25 H 104/64 95 09/22/18 20:46 105 H 19 104/64 96 09/22/18 20:45 105 H [address] with IV, no oral contrast 09/22: 1. Moderate increase in pelvic ascites. 2. Slight increase in perihepatic ascites. 3. All remaining components of the study including diffuse hepatic metastatic change are stable to slightly progressive. 4. The edematous change of the colonic wall previously described is improved. Medications Administered On pantoprazole drip.
--- NOTE | 2018-09-23 09:01 | Anesthesiology Consultation ---
Date of Service September 23, 2018 Assessment & Plan Chart Review Chart Review: Acceptable Risk for Surgery (urgent, pt with GI bleed) and Patient NOT seen in Pre Admission Testing Consults Requested none ASA [id number] Proposed Anesthesia Anesthesia Type: MAC Risk / Benefits Reviewed With: PT / POA / Parent / Guardian, Accepts Plan and Informed Consent Obtained History Surgery Operation Date: 09/23/18 10:15 Proposed Procedures p Esophagogastroduodenoscopy Dr Ishmael Quiñones Height/Weight Height: 1.63 m Weight: 62.2 kg Allergies Allergy/AdvReac Type Severity Reaction Status Date / Time No Known Allergies Allergy Verified 09/22/18 16:34 Medications Home Medications Medication Instructions Recorded Confirmed Last Taken mirtazapine 15 mg PO HS 09/22/18 09/22/18 Unknown tramadol 100 mg PO Q6H PRN 09/22/18 09/22/18 Unknown Active Medications Generic Name Dose Route Start Last Admin Trade Name Freq PRN Reason Stop Dose Admin Pantoprazole Sodium 40 mg/ 100 mls @ 20 mls/hr 09/22/18 18:30 09/23/18 05:19 Dextrose IV 10/22/18 18:29 20 mls/hr Q5H BELLE Administration Sodium Chloride 1,000 mls @ 100 mls/hr 09/22/18 20:17 09/23/18 08:03 Nss 1000ml IV 10/22/18 20:16 100 mls/hr .Q10H BELLE Administration Mirtazapine 15 mg 09/22/18 21:00 09/22/18 21:00 Remeron PO 10/22/18 20:59 Not Given HS BELLE Morphine Sulfate 3 mg 09/22/18 20:17 09/23/18 08:02 Morphine Sulfate IV 10/06/18 20:16 3 mg Q3H PRN Administration Pain Past Medical History Medical History Gastrointestinal hemorrhage with melena Lung mass Lower GI bleed (Acute) Elevated INR (Acute) Anemia (Acute) Bundle branch block DVT (deep venous thrombosis) on coumadin Non-ischemic cardiomyopathy s/p AICD placement Thrombocytopenia Cardiac defibrillator in place (Acute) TTE 2015 EF: 42% H/O: lung cancer (Acute) with mets Past Surgical History Surgical History S/P implantation of automatic cardioverter/defibrillator (AICD) History of appendectomy (Acute) History of cholecystectomy (Acute) Social History Smoking Status: Current some day smoker tobacco type: cigarettes Smoking cigarettes per day: 1-2 Do You Dip or Chew Tobacco: No Hx Alcohol Use: Yes Alcohol type: wine alcohol intake frequency: a few times a week Alcohol Intake Frequency Comment: 1-2 glasses per event. Hx Substance Use: No Physical Exam Vital Signs Last Vital Signs Temp 36.4 C L 09/23/18 08:00 Pulse 102 H 09/23/18 09:00 Resp 18 09/23/18 09:00 BP 112/46 L 09/23/18 09:00 Pulse Ox 93 09/23/18 09:00 Testing Laboratory Results 09/23/18 08:08 09/23/18 04:49 09/22/18 09/22/18 09/22/18 15:28 15:28 17:44 PT Cancelled > 90.0 H INR Cancelled > 10.4 H* APTT Cancelled > 139.0 H* Blood Type A Positive Antibody Screen NEGATIVE 09/23/18 04:41 PT 17.5 H INR 1.8 H APTT 36.9 H Blood Type Antibody Screen Laboratory Tests 09/23/18 09/23/18 02:23 08:08 WBC 19.49 H Hgb 10.8 L Hct 32.0 L Plt Count 73 L D Electrocardiogram Date: 09/22/18 Findings: + ST @ (104 bpm) Sinus tachycardia Possible Left atrial enlargement Non-specific intra- ventricular conduction delay ST & T wave abnormality, consider inferolateral ischemia Abnormal ECG When compared with ECG of 06-SEP-2018 12:05, T wave invers ion more evident in Inferior leads Chest X-Ray Date: 09/22/18 FINDINGS: Implantable cardiac pacemaker in good position. Mild emphysematous change. No acute infiltrate. Diaphragms smooth. IMPRESSION: No acute process. Echocardiogram Date: 09/24/15 EF: 42%
[2018-09-23] MEDS ORDERED: ONDANSETRON INJ 2 MG/ML 2 ML VIAL ONE (09:37)
[2018-09-23] MEDS ORDERED: MIDAZOLAM HCL 1 MG/ML 2ML VIAL ONE (09:37)
[2018-09-23] MEDS ORDERED: PROPOFOL IV EMULSION 10 MG/ML 20 ML VIAL IV ONE (09:37)
[2018-09-23] MEDS ORDERED: LIDOCAINE HCL 2% 2 ML VIAL/AMP(20MG/ML) INFIL ONE (09:37)
[2018-09-23 10:35] LABS: Appearance Urine Clear (Clear); Blood Urine 3+ (Negative); Color Urine Dark Yellow; Epithelial Cell Urine Auto >30 /lpf (0-5); Glucose Urine UA Negative (Negative); Ketones Urine Negative (Negative); Leukocyte Esterase Urine Negative (Negative); Nitrite Urine Negative (Negative); Protein Urine Trace (Negative); RBC Urine Automated >30 /hpf (0-4); Specific Gravity Urine 1.045 (1.000-1.030); Urobilinogen Urine Negative (Negative)
[2018-09-23] MEDS: cefTRIAXone SODIUM 1,000 MG in DEXTROSE 5% 50 ML IV SCH (10:40)
[2018-09-23 11:05] LABS: Bilirubin Urine Negative (Negative); Ictotest Urine Negative (Negative)
[2018-09-23 11:06] LABS: Cast Urine Automated 0 /lpf (0-5)
[2018-09-23 11:07] LABS: Bacteria Urine Automated 1+ (Negative)
--- NOTE | 2018-09-23 11:16 | Critical Care Progress Note ---
Date of Service September 23, 2018 Assessment & Plan (1) Admitted to intensive care unit: 77 yo female patient admitted to the ICU with GI bleed lily lower but unsure. She developed hypovolumic shock with BP readings as low as 76/52 and tachycardia. Patient responded to IVF. The etiology of the bleed is likely coagulopathy which is multifactorial iatrogenic and liver affection with metatatic lung cancer. This is in the setting of recurrent metastatic adenocardcinoma of the lung. 1- neurologic. Patient is on tramadol at home. Will use fentanyl 50 mcg PRN IV Q2 for hemodynamic freindly narcotic 2- Respiratory no issues 3- CV Hold all antihypertensives Hold statins IV Fluid resuscitation now on NS 100 ml/hr transfused with 1 UPRBC Hb/Hct Q6 monitoring hemodynamics in the ICU maintain MAP >65 mmHg 4- GI PPI drip NPO for EGD and colonoscopy tomorrow wanted to talk to doctor quintanilla before endoscopy. endoscopy deferred to 09/24 5- renal monitor and replete lytes use NS or resuscitation Insert chandler maintain UO >0.5 ml/Kg BW-hr Hematology Hb Hct Q6 Fu Hb and monitor clinically ID started ceftriasxone for potential UTI DVT prophylaxis with SCDs for now Will use heparin 48-72 hours after stabilization of GI bleed. Patient is critically ill and I spent a total of 45 min and she agrees to be resuscitated acutely but she would not want to be on life support for protracted amount of time. Subjective Seen at the bedside this am. She is complaining of a little confusion in response to morphine but epigastric pain is controlled. She looks a little more pink and her BP is 110s/60s now with maps in the 80s. She refused endoscopy. her a Dr in veterinary medicine is currently discussion findings with Dr Quintanilla. GI will defer endoscopy till tomorrow. She had 3 episodes of melena. Hb 10.4 She has not passed urine and Bladder scan showed 250 m. Will insert chandler and send urine culture given the dirty urine Review of Systems Review of Systems: All systems reviewed & are unremarkable except as noted in HPI & below Physical Exam Eyes: PERRL, conjunctivae normal, anicteric sclerae Neck: trachea midline, no thyromegaly Respiratory: normal respiratory effort, lungs clear to auscultation Cardiovascular: RRR, no murmur, no edema Gastrointestinal (Abdomen): She has no more epigastric tenderness BS are normal this am. Musculoskeletal: no cyanosis or clubbing, extremities motor strength 5/5 Skin: no rashes, warm and dry Results & Data Vital Signs (Past 12 Hours) Vital Signs Temp Pulse Resp BP Pulse Ox 09/23/18 09:00 102 H 18 112/46 L 93 09/23/18 08:00 36.4 C L 103 H 20 92/51 L 94 09/23/18 07:00 106 H 16 103/59 L 92 09/23/18 06:31 108 H 15 97 09/23/18 06:30 109 H 15 95 09/23/18 06:16 108 H 20 100/55 L 96 09/23/18 06:15 108 H 41 H 95 09/23/18 06:00 107 H 20 92 09/23/18 05:46 108 H 21 115/64 94 09/23/18 05:45 108 H 18 95 09/23/18 05:31 105 H 21 109/59 L 95 09/23/18 05:30 105 H 18 95 09/23/18 05:16 108 H 14 117/60 94 09/23/18 05:15 109 H 20 95 09/23/18 05:01 106 H 19 119/61 94 09/23/18 05:00 107 H 20 94 09/23/18 04:46 107 H 22 107/71 93 09/23/18 04:45 108 H 20 93 09/23/18 04:31 106 H 20 112/63 93 09/23/18 04:30 106 H 20 95 09/23/18 04:16 109 H 20 120/68 96 09/23/18 04:15 108 H 22 95 09/23/18 04:01 108 H 18 117/65 96 09/23/18 04:00 108 H 17 97 09/23/18 03:46 106 H 28 H 108/44 L 94 09/23/18 03:45 106 H 37 H 94 09/23/18 03:32 109 H 20 117/57 L 83 L 09/23/18 03:30 108 H 27 H 90 09/23/18 03:16 109 H 21 108/45 L 95 09/23/18 03:15 110 H 22 91 09/23/18 03:01 106 H 25 H 110/64 95 09/23/18 03:00 106 H 21 95 09/23/18 02:46 105 H 18 118/58 L 95 09/23/18 02:45 105 H 17 96 09/23/18 02:31 105 H 17 117/68 94 09/23/18 02:30 105 H 16 94 09/23/18 02:16 110 H 24 92/78 L 09/23/18 02:15 111 H 12 94 09/23/18 02:01 113 H 18 117/57 L 93 09/23/18 02:00 114 H 16 92 09/23/18 01:46 107 H 19 116/58 L 93 09/23/18 01:45 107 H 22 94 09/23/18 01:31 108 H 17 117/68 94 09/23/18 01:30 108 H 16 94 09/23/18 01:16 108 H 17 117/73 95 09/23/18 01:15 108 H 15 93 09/23/18 01:01 108 H 24 110/66 94 09/23/18 01:00 108 H 16 93 09/23/18 00:46 108 H 17 115/64 94 09/23/18 00:45 107 H 16 94 09/23/18 00:34 107 H 17 112/63 95 09/23/18 00:30 107 H 15 09/23/18 00:15 107 H 16 09/23/18 00:01 107 H 16 116/56 L 97 09/23/18 00:00 107 H 17 96 09/22/18 23:46 106 H 16 106/57 L 96 09/22/18 23:45 106 H 17 94 09/22/18 23:40 36.6 C 107 H 16 101/57 L 93 09/22/18 23:31 107 H 23 101/57 L 93 09/22/18 23:30 107 H 16 95 09/22/18 23:16 107 H 17 98/54 L 95 09/22/18 23:15 107 H 16 93
[2018-09-23] MEDS: fentaNYL citrate 100 MCG/2 ML VIAL IV PRN ×4 (11:44→23:55)
[2018-09-23 14:29] LABS: Hematocrit (blood only) 30.8 % (37-47); Hemoglobin 10.6 g/dL (12.0-16.0)
--- NOTE | 2018-09-23 19:16 | Hospitalist Progress Note ---
Date of Service September 23, 2018 Assessment & Plan (1) Gastrointestinal hemorrhage with melena: ASSESSMENT AND PLAN: This 77-year-old female who presents with gastrointestinal bleed. 1. Gastrointestinal bleeding, initially black stool then bright red blood per rectum. INR is supratherapeutic on admission. Received IV vitamin K 10mg in the Emergency Room. Also given Kcentra. --Status post 1 unit packed RBCs Today hemoglobin 10.6 --GI consulted Patient and family declined EGD or colonoscopy Continue Protonix, monitor H&H Monitor INR 2. Leukocytosis, etiology unclear. We will follow blood cultures and urine cultures. Empirically started on IV Zosyn in the Emergency Room --Currently on empiric ceftriaxone --Follow-up cultures 3. History of nonischemic cardiomyopathy, ejection fraction of 35% in 2013 and repeat echo in 11/2015 showed an ejection fraction of 42%. Initially she had ICD placement. She is on Coumadin for presumed cardioembolic phenomenon affecting lower extremity. INR is supratherapeutic. --Coumadin on hold in light of GI bleed Monitor volume status closely 4. Metastatic cancer, history of lung cancer, right middle and lower lobe lung cancer in 2016, nonsmall cell cancer status post lobectomy, now recently found to have liver mets, status post biopsy on 09/05/2018 showing poorly differentiated adenocarcinoma, most likely coming from the lungs. Supposed to see Hematology/Oncology next week. Liver mets possibly causing elevated INR. Gett ing IV vitamin and Kcentra. --Discussed case with Dr. 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 Depression. Continue Remeron. 8. Deep venous thrombosis prophylaxis, sequential compression devices for now. 9. Disposition: Close monitoring in the Intensive Care Unit. 10. Code status, patient wants to be DNR, but daughter wants her to be full code, so they want to be full code for now until further discussion. Disposition pending Patient lives at home with family Subjective Follow-up for GI bleed Resting in bed, comfortable, not in distress Answers most questions appropriately Noted to be intermittently confused after being given pain medications Denies abdominal pain, nausea, chest pain no shortness of breath no palpitations no dizziness No other symptoms Review of Systems Review of Systems: All systems reviewed & are unremarkable except as noted in HPI & below Physical Exam Physical Exam: General- oriented x 2, not in distress, speaks in sentences with no effort or accessory muscle use Head- atraumatic Eyes- PERRL, EOMI, anicteric ENT- oropharynx clear Neck- supple, no JVD, no adenopathy, no thyromegaly; carotids +2/2, no bruits appreciated Lungs- clear to auscultation bilaterally, no rales/wheezes Heart- normal rate, regular rhythm; no murmur, no gallop, no rub appreciated Abdomen- normal bowel sounds, nondistended, soft, nontender, no masses or hepatosplenomegaly Extremities- no pretibial edema, no calf tenderness; peripheral pulses intact Neuro- alert, oriented x 2; CN 2-12 grossly intact; motor 5/5 bilaterally;sensation 100% on all extremities; no other gross focal neurologic deficits Skin- warm & dry Results & Data Vital Signs (Past 12 Hours) Vital Signs Temp Pulse Resp BP Pulse Ox 09/23/18 18:00 101 H 18 108/59 L 100 09/23/18 17:00 102 H 19 107/38 L 99 09/23/18 16:00 36.4 C L 101 H 22 113/56 L 100 09/23/18 15:00 106 H 16 113/69 100 09/23/18 14:00 98 H 14 108/58 L 99 09/23/18 13:00 100 H 15 119/57 L 100 09/23/18 12:00 36.4 C L 98 H 22 110/62 97 09/23/18 11:00 101 H 16 98/66 L 09/23/18 10:00 102 H 17 113/59 L 09/23/18 09:00 102 H 18 112/46 L 93 09/23/18 08:00 36.4 C L 103 H 20 92/51 L 94 Laboratory Results Laboratory Results - last 24 hr 09/22/18 09/22/18 09/22/18 15:28 19:45 21:12 WBC RBC Hgb 9.0 L Hct 27.4 L MCV MCH MCHC RDW Std Deviation RDW Coeff of Jodi Plt Count MPV Immature Gran % (Auto) Neut % (Auto) Lymph % (Auto) [place] % (Auto) Eos % (Auto) Baso % (Auto) Immature Gran # (Auto) Neut # (Auto) Lymph # (Auto) [place] # (Auto) Eos # (Auto) Baso # (Auto) Absolute Nucleated RBC Nucleated RBC % (auto) Toxic Vacuolation Platelet Estimate Polychromasia PT INR APTT PTT Ratio Sodium Potassium Chloride Carbon Dioxide Anion Gap BUN Creatinine Est Cr Clr Drug Dosing Est GFR ( Amer) Est GFR (Non-Af Amer) BUN/Creatinine Ratio Glucose POC Glucose Calcium Magnesium Total Bilirubin Direct Bilirubin AST ALT Alkaline Phosphatase Troponin I Total Protein Albumin Lipase Urine Color Urine Appearance Urine pH Ur Specific [place] Urine Protein Urine Glucose (UA) Urine Ketones Urine Blood Urine Nitrite Urine Bilirubin Urine Urobilinogen Ur Leukocyte Esterase Urine WBC (Auto) Urine RBC (Auto) U Hyaline Cast (Auto) U Epithel Cells (Auto) Urine Bacteria (Auto) Nasal Screen MRSA (PCR) Negative Blood Type A Positive Antibody Screen NEGATIVE Crossmatch See Detail 09/22/18 09/23/18 09/23/18 21:12 01:20 02:23 WBC 19.49 H RBC 3.75 L Hgb 11.6 L Hct 34.9 L MCV 93.1 MCH 30.9 MCHC 33.2 RDW Std Deviation 48.7 H RDW Coeff of Jodi 14.8 H Plt Count 73 L D MPV 8.7 Immature Gran % (Auto) 1.9 Neut % (Auto) 81.4 Lymph % (Auto) 5.0 [place] % (Auto) 10.9 Eos % (Auto) 0.5 Baso % (Auto) 0.3 Immature Gran # (Auto) 0.38 H Neut # (Auto) 15.86 H Lymph # (Auto) 0.97 L [place] # (Auto) 2.13 H Eos # (Auto) 0.10 Baso # (Auto) 0.05 Absolute Nucleated RBC 0.15 H Nucleated RBC % (auto) 0.8 Toxic Vacuolation 2+ Platelet Estimate Decreased L Polychromasia 1+ PT INR APTT PTT Ratio Sodium Potassium Chloride Carbon Dioxide Anion Gap BUN Creatinine Est Cr Clr Drug Dosing Est GFR ( Amer) Est GFR (Non-Af Amer) BUN/Creatinine Ratio Glucose POC Glucose 131 H Calcium Magnesium Total Bilirubin Direct Bilirubin AST ALT Alkaline Phosphatase Troponin I 0.116 H* Total Protein Albumin Lipase Urine Color Urine Appearance Urine pH Ur Specific [place] Urine Protein Urine Glucose (UA) Urine Ketones Urine Blood Urine Nitrite Urine Bilirubin Urine Urobilinogen Ur Leukocyte Esterase Urine WBC (Auto) Urine RBC (Auto) U Hyaline Cast (Auto) U Epithel Cells (Auto) Urine Bacteria (Auto) Nasal Screen MRSA (PCR) Blood Type Antibody Screen Crossmatch 09/23/18 09/23/18 09/23/18 04:41 04:49 08:08 WBC RBC Hgb 10.8 L Hct 32.0 L MCV MCH MCHC RDW Std Deviation RDW Coeff of Jodi Plt Count MPV Immature Gran % (Auto) Neut % (Auto) Lymph % (Auto) [place] % (Auto) Eos % (Auto) Baso % (Auto) Immature Gran # (Auto) Neut # (Auto) Lymph # (Auto) [place] # (Auto) Eos # (Auto) Baso # (Auto) Absolute Nucleated RBC Nucleated RBC % (auto) Toxic Vacuolation Platelet Estimate Polychromasia PT 17.5 H INR 1.8 H APTT 36.9 H PTT Ratio 1.4 Sodium 132 L Potassium 4.6 Chloride 100 Carbon Dioxide 24 Anion Gap 8.0 BUN 53 H Creatinine 0.95 Est Cr Clr Drug Dosing 41.5 Est GFR ( Amer) 66.0 Est GFR (Non-Af Amer) 57.0 BUN/Creatinine Ratio 56.1 H Glucose 126 H POC Glucose Calcium 7.7 L D Magnesium 1.8 Total Bilirubin 1.3 H Direct Bilirubin 0.9 H AST 308 H ALT 82 H Alkaline Phosphatase 504 H Troponin I 0.137 H* Total Protein 4.5 L D Albumin 1.9 L Lipase 93 Urine Color Urine Appearance Urine pH Ur Specific [place] Urine Protein Urine Glucose (UA) Urine Ketones Urine Blood Urine Nitrite Urine Bilirubin Urine Urobilinogen Ur Leukocyte Esterase Urine WBC (Auto) Urine RBC (Auto) U Hyaline Cast (Auto) U Epithel Cells (Auto) Urine Bacteria (Auto) Nasal Screen MRSA (PCR) Blood Type Antibody Screen Crossmatch 09/23/18 09/23/18 10:25 14:01 WBC RBC Hgb 10.6 L Hct 30.8 L MCV MCH MCHC RDW Std Deviation RDW Coeff of Jodi Plt Count MPV Immature Gran % (Auto) Neut % (Auto) Lymph % (Auto) [place] % (Auto) Eos % (Auto) Baso % (Auto) Immature Gran # (Auto) Neut # (Auto) Lymph # (Auto) [place] # (Auto) Eos # (Auto) Baso # (Auto) Absolute Nucleated RBC Nucleated RBC % (auto) Toxic Vacuolation Platelet Estimate Polychromasia PT INR APTT PTT Ratio Sodium Potassium Chloride Carbon Dioxide Anion Gap BUN Creatinine Est Cr Clr Drug Dosing Est GFR ( Amer) Est GFR (Non-Af Amer) BUN/Creatinine Ratio Glucose POC Glucose Calcium Magnesium Total Bilirubin Direct Bilirubin AST ALT Alkaline Phosphatase Troponin I Total Protein Albumin Lipase Urine Color Dark Yellow Urine Appearance Clear Urine pH 5.0 Ur Specific [place] 1.045 H Urine Protein Trace H Urine Glucose (UA) Negative Urine Ketones Negative Urine Blood 3+ H Urine Nitrite Negative Urine Bilirubin Negative Urine Urobilinogen Negative Ur Leukocyte Esterase Negative Urine WBC (Auto) 1-5 Urine RBC (Auto) >30 H U Hyaline Cast (Auto) 0 U Epithel Cells (Auto) >30 H Urine Bacteria (Auto) 1+ H Nasal Screen MRSA (PCR) Blood Type Antibody Screen Crossmatch
[2018-09-23] MEDS: MIRTAZAPINE TAB 15 MG TAB PO SCH (20:28)
[2018-09-23] MEDS ORDERED: DEXTROSE 50% 50 ML SYRINGE IV ONE (23:09)
[2018-09-23] MEDS ORDERED: GLUCOSE 40% GEL 15 GM TUBE PO PRN (23:11)
[2018-09-23] MEDS ORDERED: DEXTROSE 50% 50 ML SYRINGE IV PRN (23:11)
[2018-09-23] MEDS ORDERED: GLUCOSE 10 TABS/TUBE PO PRN (23:11)
[2018-09-23] MEDS ORDERED: CARBOHYDRATES FOR HYPOGLYCEMIA PO PRN (23:11)
[2018-09-23] MEDS ORDERED: GLUCAGON FOR INJ 1 MG VIAL SQ PRN (23:11)
[2018-09-23] MEDS: D5W AND LACTATED RINGERS 1,000 ML IV SCH (23:30)
[2018-09-24] MEDS: PANTOprazole 40 MG in DEXTROSE 5% 100 ML IV SCH ×5 (01:33→22:53)
[2018-09-24] MEDS: fentaNYL citrate 100 MCG/2 ML VIAL IV PRN ×2 (03:40→12:52)
[2018-09-24 05:25] LABS: Hematocrit (blood only) 28.3 % (37-47); Hemoglobin 9.6 g/dL (12.0-16.0); Mean Corpuscular Hgb Conc 33.9 g/dL (32-36); Mean Corpuscular Volume 90.7 fL (80-100); Nucleated RBC # (auto) 0.14 K/uL (0-0); Nucleated RBC % (auto) 0.9 %; RDW Coefficient of Variation 15.2 % (11.5-14.5); RDW Standard Deviation 48.1 fL (36.4-46.3); Red Blood Count 3.12 M/uL (4.2-5.4); White Blood Count 15.22 K/uL (4.8-10.8)
[2018-09-24 05:35] LABS: Mean Platelet Volume 10.2 fL (7.4-10.4); Platelet Count 37 K/uL (130-400)
[2018-09-24 05:44] LABS: Partial Thromboplastin Ratio 1.5; Partial Thromboplastin Time 41.5 Seconds (21.0-31.0); Prothrombin Time 19.4 Seconds (9.0-12.0)
[2018-09-24 05:46] LABS: Albumin Level 1.8 gm/dl (3.4-5.0); BUN Creatinine Ratio 66.5 (10-20); Bilirubin Direct 1.1 mg/dl (0-0.2); Creatinine Clr Calc Pharmacy 67.9 ml/min; Est GFR (African American) 101.6; Est GFR (Non-African American) 87.7; Magnesium 1.9 mg/dl (1.8-2.4); Potassium 4.2 mmol/L (3.5-5.1)
[2018-09-24 05:47] LABS: Bilirubin,Total 1.4 mg/dl (0.2-1); Total Protein 4.3 gm/dl (6.4-8.2)
[2018-09-24 05:55] LABS: Basophils # (auto) 0.01 K/uL (0-0.2); Basophils % (auto) 0.1 %; Eosinophils # (auto) 0.12 K/uL (0-0.5); Eosinophils % (auto) 0.8 %; Giant Platelets 1+; Immature Granulocytes # (auto) 0.26 K/uL (0.00-0.02); Immature Granulocytes % (auto) 1.7 %; Lymphocytes # (auto) 0.68 K/uL (1.2-3.4); Lymphocytes % (auto) 4.5 %; Monocytes # (auto) 1.53 K/uL (0.11-0.59); Monocytes % (auto) 10.1 %; Neutrophils # (auto) 12.62 K/uL (1.4-6.5); Neutrophils % (auto) 82.8 %; Polychromasia 1+; Toxic Vacuolation 2+
[2018-09-24] MEDS: cefTRIAXone SODIUM 1,000 MG in DEXTROSE 5% 50 ML IV SCH (09:18)
[2018-09-24] MEDS ORDERED: PHYTONADIONE 2.5 MG in SODIUM CHLORIDE 0.9% 50 ML IV ONE (09:30)
[2018-09-24] MEDS ORDERED: NIFEdipine 10 MG CAP PO SCH (10:00)
[2018-09-24] MEDS ORDERED: fentaNYL citrate 100 MCG/2 ML VIAL ONE (10:24)
[2018-09-24] MEDS ORDERED: LIDOCAINE HCL 2% 2 ML VIAL/AMP(20MG/ML) INFIL ONE (11:04)
[2018-09-24] MEDS ORDERED: PROPOFOL IV EMULSION 10 MG/ML 20 ML VIAL IV ONE (11:04)
--- NOTE | 2018-09-24 11:21 | History & Physical Bridge Note ---
Date of Service September 24, 2018 History & Physical Bridge Note I have examined the patient, reviewed the History & Physical and in the interval since the performance of the History & Physical I have noted the following changes of clinical significance: no changes noted. The patient and her family have elected to pursue upper endoscopy to evaluate for evidence of peptic ulcer disease. We discussed the risks of endoscopy to include bleeding, infection, perforation, pain aspiration and need for follow-up studies.
--- NOTE | 2018-09-24 11:27 | Palliative Care Progress Note ---
Date of Service September 24, 2018 Subjective Consult received, patient discussed at ICU rounds today. She is going for EGD this morning. Heme/onc has been consulted for her diagnosis of metastatic adenocarcinoma. Will wait to hear heme/onc's input about treatment options and/or next steps, then we will discuss goals of care. Formal consult to follow.
--- NOTE | 2018-09-24 12:01 | GI REPORT ---
Patient Name: Twila Pan Procedure Date: 09/24/2018 11:25 AM Date of : 1940 Admit Type: Inpatient Age: 77 Gender: Female Attending MD: Jeremy Quiñones DO Procedure: Upper GI endoscopy Providers: Jeremy Quiñones DO Referring MD: Matt Richards M.d., Dakotah Fang, Catherine Fang Indications: Melena Medicines: Monitored Anesthesia Care Complications: No immediate complications. Estimated blood loss: Minimal. Estimated Blood Loss: Estimated blood loss was minimal. Procedure: Pre-Anesthesia Assessment: - Prior to the procedure, a History and Physical was performed, and patient medications, allergies and sensitivities were reviewed. The patient's tolerance of previous anesthesia was reviewed. - The risks and benefits of the procedure and the sedation options and risks were discussed with the patient. All questions were answered and informed consent was obtained. - Patient identification and proposed procedure were verified prior to the procedure by the physician, the nurse and the station installer. The procedure was verified in the procedure room. - Pre-procedure physical examination revealed no contraindications to sedation. - ASA Grade Assessment: IV - A patient with severe systemic disease that is a constant threat to life. - After reviewing the risks and benefits, the patient was deemed in satisfactory condition to undergo the procedure. - The anesthesia plan was to use monitored anesthesia care (MAC). - Immediately prior to administration of medications, the patient was re-assessed for adequacy to receive sedatives. - The heart rate, respiratory rate, oxygen saturations, blood pressure, adequacy of pulmonary ventilation, and response to care were monitored throughout the procedure. - The physical status of the patient was re-assessed after the procedure. After obtaining informed consent, the endoscope was passed under direct vision. Throughout the procedure, the patient's blood pressure, pulse, and oxygen saturations were monitored continuously. The scope was introduced through the mouth, and advanced to the third part of duodenum. The upper GI endoscopy was accomplished without difficulty. The patient tolerated the procedure well. Findings: The examined esophagus was normal. Hematin (altered blood/[id number]-ymqyvd-ifvw material) was found in the entire examined stomach. Red blood was noted in the proximal esophagus. Localized moderately friable mucosa with spontaneous bleeding was found in the gastric fundus. Coagulation for hemostasis using argon plasma at 0.8 liters/minute and 40 melara was successful. Estimated blood loss was minimal. Localized nodular mucosa was found in the gastric fundus at the region of the hemorrhage. Biopsies were taken with a cold forceps for histology. Estimated blood loss was minimal. The examined duodenum was normal. Impression: - Normal esophagus. - Hematin (altered blood/cxjffl-aylsgq-wify material) in the entire stomach. - Nodular mucosa in the gastric fundus. Biopsied. - Friable gastric mucosa. Treated with argon plasma coagulation (APC). - Normal examined duodenum. Recommendation: - Return patient to hospital [facility] for ongoing care. - Clear liquid diet today. - Await pathology results. - Continue Protonix (pantoprazole): 8 mg/hr IV by continuous infusion for another 2 days. - Use sucralfate tablets 1 gram PO QID for 4 weeks. Jeremy Quiñones D.O. Jeremy Quiñones, 09/24/2018 12:00:51 PM This report has been signed electronically. Note Initiated On: 09/24/2018 11:25 AM Number of Addenda: 0 I attest to the content of the Intraoperative Record and orders documented therein, exceptions below {[id number]}
--- NOTE | 2018-09-24 12:08 | Anesthesiology Progress Note ---
Date of Service September 24, 2018 Anesthesia Post Procedure Vital Signs Vital Signs: Temp Pulse Pulse Resp BP BP Pulse Ox 09/24/18 09:36 36.6 C 105 H 16 116/62 95 09/24/18 08:00 36.5 C 100 H 17 96/59 L 100 09/24/18 07:00 102 H 24 105/56 L 100 09/24/18 06:00 102 H 13 106/62 100 09/24/18 05:00 101 H 14 115/61 100 09/24/18 04:00 36.6 C 101 H 14 108/64 100 09/24/18 03:00 101 H 16 113/61 97 09/24/18 02:00 100 H 16 110/57 L 99 09/24/18 01:00 100 H 15 118/61 100 09/24/18 00:00 36.6 C 99 H 18 121/55 L 99 09/23/18 23:00 102 H 20 105/62 99 09/23/18 22:00 102 H 15 121/62 100 09/23/18 21:00 101 H 20 97/50 L 100 09/23/18 20:17 09/23/18 20:00 36.5 C 103 H 24 112/57 L 100 09/23/18 19:00 101 H 21 122/54 L 100 09/23/18 18:00 101 H 18 108/59 L 100 09/23/18 17:00 102 H 19 107/38 L 99 09/23/18 16:00 36.4 C L 101 H 22 113/56 L 100 09/23/18 15:00 106 H 16 113/69 100 09/23/18 14:00 98 H 14 108/58 L 99 09/23/18 13:00 100 H 15 119/57 L 100 Pulse Ox 09/24/18 09:36 09/24/18 08:00 09/24/18 07:00 09/24/18 06:00 09/24/18 05:00 09/24/18 04:00 09/24/18 03:00 09/24/18 02:00 09/24/18 01:00 09/24/18 00:00 09/23/18 23:00 09/23/18 22:00 09/23/18 21:00 09/23/18 20:17 99 09/23/18 20:00 09/23/18 19:00 09/23/18 18:00 09/23/18 17:00 09/23/18 16:00 09/23/18 15:00 09/23/18 14:00 09/23/18 13:00 Pain Intensity Bilateral Abdomen: Pain Intensity: 4 Transfer of Care Handoff Completed per policy Notes Mental Status: alert / awake / arousable and participated in evaluation Patient Amnestic to Procedure: Yes Nausea / Vomiting: adequately controlled Pain: adequately controlled Airway Patency, RR, SpO2: stable & adequate BP & HR: stable & adequate Hydration State: stable & adequate Anesthetic Complications: no major complications apparent
[2018-09-24] MEDS: D5W AND LACTATED RINGERS 1,000 ML IV SCH (12:53)
--- NOTE | 2018-09-24 13:58 | Critical Care Progress Note ---
Date of Service September 24, 2018 Assessment & Plan (1) Admitted to intensive care unit: 77 yo female patient admitted to the ICU with GI bleed lily rain but unsure. She developed hypovolumic shock with BP readings as low as 76/52 and tachycardia. Patient responded to IVF. The etiology of the bleed is likely coagulopathy which is multifactorial iatrogenic and liver affection with metatatic lung cancer. This is in the setting of recurrent metastatic adenocardcinoma of the lung. 1- neurologic. Patient is on tramadol at home.will resume that. If she continues to be confused woutld get a head CT 2- Respiratory no issues 3- CV Hold all antihypertensives Hold statins IV Fluid resuscitation now on D5 LR as she was hypoglycemic over night transfused with 1 UPRBC Hb/Hct Q6 monitoring hemodynamics in the ICU maintain MAP >65 mmHg startalbumin for 2 days 4- GI PPI drip clear liquids and PO meds 5- renal monitor and replete lytes use NS or resuscitation Insert chandler maintain UO >0.5 ml/Kg BW-hr Hematology Hb Hct Q6 Fu Hb and monitor clinically ID started ceftriasxone for UTI DVT prophylaxis with SCDs for now Will use heparin 48-72 hours after stabilization of GI bleed. Patient is critically ill and I spent a total of 40 min and she agrees to be resuscitated acutely but she would not want to be on life support for protracted amount of time. Subjective Patient went to EGD this am and a nodular density was found in the stomach. It seems most of the bleeding originated in the stomach. Proximal esophagus and duodenum were clear. Biopsies were taked from the gastric nodular mass. Results are pending. Patient upated at bedside. Pain control seems adequate however she is progressively getting disoriented. Would resume her home tramadol for pain control and proceed with CT head. INR incresing without coumadin. She is placed on vitamin K IV today and SC tomorrow. Albumin is low will supplement Physical Exam Eyes: PERRL, conjunctivae normal, anicteric sclerae Neck: trachea midline, no thyromegaly Respiratory: normal respiratory effort, lungs clear to auscultation Cardiovascular: RRR, no murmur, no edema Musculoskeletal: no cyanosis or clubbing, extremities motor strength 5/5 Skin: no rashes, warm and dry Results & Data Vital Signs (Past 12 Hours) Vital Signs Temp Pulse Pulse Resp BP BP BP 09/24/18 12:28 106 H 22 107/70 09/24/18 12:13 106 H 18 92/79 L 09/24/18 11:58 62 18 108/68 09/24/18 09:36 36.6 C 105 H 16 116/62 09/24/18 08:00 36.5 C 100 H 17 96/59 L 09/24/18 07:00 102 H 24 105/56 L 09/24/18 06:00 102 H 13 106/62 09/24/18 05:00 101 H 14 115/61 09/24/18 04:00 36.6 C 101 H 14 108/64 09/24/18 03:00 101 H 16 113/61 09/24/18 02:00 100 H 16 110/57 L Pulse Ox 09/24/18 12:28 100 09/24/18 12:13 100 09/24/18 11:58 100 09/24/18 09:36 95 09/24/18 08:00 100 09/24/18 07:00 100 09/24/18 06:00 100 09/24/18 05:00 100 09/24/18 04:00 100 09/24/18 03:00 97 09/24/18 02:00 99
--- NOTE | 2018-09-24 14:28 | Communication Note ---
Date of Service: September 24, 2018 The patient underwent an upper endoscopy today. Findings were notable for friable nodular appearing mucosa near the gastric fundus. We treated this with argon plasma coagulation and obtained a biopsy. The patient did have significant amount of pain prior to beginning the upper endoscopy today. Given this perhaps a right upper quadrant ultrasound would be of benefit. Reviewing her CT scan does show widely metastatic disease to her liver and I suspect that the aspirin is the likely cause of her discomfort. Unfortunately I do not think that there is an endoscopic intervention for this patient for that particular issue (ie Biliary decompression for obstruction)
[2018-09-24] MEDS: ALBUMIN 5% 250 ML IV SCH ×2 (15:14→21:56)
--- NOTE | 2018-09-24 15:16 | Ultrasound Report ---
US abdomen limited CLINICAL HISTORY: Right upper quadrant abdominal pain. Abnormal LFTs. COMPARISON STUDY: CT scan dated 09/22/2018 FINDINGS: The liver is enlarged (28 cm), and essentially replaced with multiple metastatic deposits. The gallbladder surgically absent. The common bile duct measures 8 mm. There is no significant intrah epatic biliary ductal dilatation. No pancreatic lesions are delineated. There is no right-sided hydro nephrosis. IMPRESSION: 1. Hepatomegaly and diffuse hepatic metastasis 2. Surgically absent gallbladder 3. 8 mm common bile duct. This may be normal in a postcholecystectomy patient Electronically signed by: Jonas Hernandez M.D. 09/24/2018 3:15 PM
--- NOTE | 2018-09-24 17:16 | Oncology Consultation ---
Date of Consultation September 24, 2018 Assessment & Plan (1) Liver metastases: 77-year-old female, oncology diagnosis: - Right lower lobe lung cancer (adenocarcinoma), S/P surgery in December 2015, T1a N1a M0, stage IIB, remained under pleasant since then - Now she has multiple liver lesions which has raised the possibility of metastatic disease, FNA from the 1 of the liver lesion confirmed well- differentiated adenocarcinoma, lung is considered as a primary site. No additional tissue is available for the testing, no PD L1 testing done. Now admitted hospital for upper GI bleed, elevated INR while on oral Coumadin treatment, hypotension, worsening liver function test without any biliary ductal dilatation, possible mucosal lesion suspicious in nature noted in the endoscopic evaluation, biopsy done, result pending. Received blood transfusion, abdomen complex, vitamin K supplementation, hemodynamically stable at this time, INR dropped down to around 1.8-2, platelet count has further dropped down to around 35,000. Yesterday I had discussion with the patient's regarding her overall clinical condition, overall prognosis remains quite poor, expected survival would be considered in few weeks, her liver function test is likely to become abnormal and she is not a candidate for any kind of biliary stenting procedure. I also spoke with undercar specialist and Dr. Quiñones who performed upper GI endoscopic in her case. No family members were at bedside today when I saw her. At present her cord status is phone call, yesterday when I talked to patient's , he suggested about no aggressive measures in her case. She is not a candidate for any kind of systemic treatment for cancer diagnosis. Will try to speak with the family members on the phone when they are available. Dakotah Fang MD Hem/Onc History of Present Illness Attending Physician: Matt Richards MD 77-year-old female Right lower lobe adenocarcinoma, S/P resection by Dr. Simpson in 12/2015, final pathology showed moderate differentiated adenocarcinoma, at least 1.5 cm, but less than 2 cm primary tumor, negative margin, 05/09 lymph leena positive for metastatic disease, positive lymph node in the peribronchial region measuring 2 mm. T1a N1a M0, stage IIB, EGFR, ALK, ROS1 negative. She remained under observation since then. Recent imaging studies done on 08/11/2018 showed multiple liver lesions, there are more than 10 lesions reported in the CT scan the chest. PET-CT scan done on 08/25/2018 showed interval development of diffuse liver metastases, no bony lesions, interval development of right periaortic lymph adenopathy measuring 3.6 x 3.8 cm close to the uncinate process of the pancreas with SUV of 7. Biopsy from the 1 of the liver lesion (09/05/2018) > Poorly differentiated adenocarcinoma, it is negative for TTF-1 and napsin A. Extensive boat oar maker chemistry performed, does not appear to be primary site involving the breast, AERONAUTICAL ENGINEERING TECHNOLOGIST or GI track. Primary site of lung cancer cannot be ruled out. No additional tissue is available for further testing. She had schedule clinic visit for the follow-up this week but now she's admitted at [facility] on 09/22/2018 for passing black color stool, also noticed to some bright red blood in the stool, hemoglobin level dropped down from 13.5 to 10.6, blood pressure was on the lower side, poor appetite noted, feeling weak and tired. I reviewed hospital records, received 1 unit of PRBC, she also had elevated INR over 10, she is on oral Coumadin for underlying cardiac condition, received prothrombin complex x 1, IV vitamin K, INR dropped down to around 2.0, also noticed to leucocytosis, started her on broad-spectrum antibiotic coverage, no fever. I saw her in the ICU today. She is feeling weak and tired, earlier in the day she had upper GI endoscopic evaluation by Dr. Quiñones, found to have mucosal lesion in the stomach with some visible bleeding, earlier in the day she had abdominal pain but it has improved, fair appetite, no nausea or vomiting, no increasing leg edema, O2 saturation on room air is around 100%, Allergies Allergy/AdvReac Type Severity Reaction Status Date / Time No Known Allergies Allergy Verified 09/22/18 16:34 Home Medications Home Medications Medication Instructions Recorded Confirmed Type mirtazapine 15 mg PO HS 09/22/18 09/22/18 History tramadol 100 mg PO Q6H PRN 09/22/18 09/22/18 History Patient History Medical History Gastrointestinal hemorrhage with melena Lung mass Lower GI bleed (Acute) Elevated INR (Acute) Anemia (Acute) Bundle branch block DVT (deep venous thrombosis) on coumadin Non-ischemic cardiomyopathy s/p AICD placement Thrombocytopenia Cardiac defibrillator in place (Acute) TTE 2015 EF: 42% H/O: lung cancer (Acute) with mets Surgical History S/P implantation of automatic cardioverter/defibrillator (AICD) History of appendectomy (Acute) History of cholecystectomy (Acute) Social History Preferred Language: Welsh Communication Ability: Impaired Regional Sales Coordinator Required: No Beliefs That Will Affect Care: None Current Living Situation: Spouse and Family Current Living Situation Comment: Lives with daughter. Other Information That Helps Us Care for You: No Feels Safe at Home: Yes Safety Concerns: Feels Safe At This Time Smoking Status: Current some day smoker (HISTORY OF 1PPD X 63 YEARS) Tobacco Type: cigarettes Cigarettes Per Day: 1-2 Do You Dip or Chew Tobacco: No Tobacco Cessation Education Requested by Patient: No Hx Alcohol Use: Yes Alcohol type: wine Hx Substance Use: No Review of Systems Review of Systems: I could not obtain detailed review of systems in her case. Physical Exam Physical Exam: On exam: - Alert and oriented x3, thin built woman, not in any distress. - HEENT: no icterus, no pallor, Throat: Normal. - Neck: No palpable cervical lymphadenopathy. - Abdomen: soft, nontender, no hepatomegaly, no splenomegaly. - No focal neuro deficit. - Extremities: no finger clubbing, no leg edema. Results & Data Vital Signs (Past 12 Hours) Vital Signs Temp Pulse Pulse Resp BP BP BP 09/24/18 16:00 36.9 C 109 H 17 100/65 09/24/18 15:55 108 H 22 87/62 L 09/24/18 15:00 105 H 26 H 09/24/18 14:00 105 H 13 96/48 L 09/24/18 13:00 104 H 17 110/61 09/24/18 12:28 106 H 22 107/70 09/24/18 12:13 106 H 18 92/79 L 09/24/18 11:58 62 18 108/68 09/24/18 09:36 36.6 C 105 H 16 116/62 09/24/18 08:00 36.5 C 100 H 17 96/59 L 09/24/18 07:00 102 H 24 105/56 L 09/24/18 06:00 102 H 13 106/62 Pulse Ox 09/24/18 16:00 100 05/29/19 15:55 100 09/24/18 15:00 100 09/24/18 14:00 09/24/18 13:00 99 09/24/18 12:28 100 09/24/18 12:13 09/24/18 11:58 100 09/24/18 09:36 95 09/24/18 08:00 100 09/24/18 07:00 100 09/24/18 06:00 100 Her hemoglobin dropped down to around 9 g/dL on 09/22/2018, received blood pressure support, now WBC count is around 15,000, H&H of 9.6/20.3, Platelet count of 37,000 (09/24/2018) - INR was over 10 on admission, dropped down to around 1.8-2 after vitamin K and prothrombin complex supplementation. - BUN/creatinine: 38/0.5 - Calcium 7.0 - Total bilirubin level increased on 1.4, data-driven 1.1 - AST increased to around 634, ALT 158, alkaline phosphatase 643. - total protein 4.3, albumin 1.8. Blood culture and urine culture negative so far. IMAGING: CT scan of the abdomen and pelvis done on 09/22/2018: - Moderate ascites in the pericardial region and pelvic lesion noted. - Diffuse metastatic disease involving the liver noted. - No biliary ductal dilatation noted. Thickening of the colonic wall noted. Abdominal ultrasound (09/24/2018) - Hepatomegaly with diffuse metastatic disease involving the liver. -- S/P cholecystectomy noted, - 8 mm CBD is normal..
--- NOTE | 2018-09-24 18:59 | Hospitalist Progress Note ---
Date of Service September 24, 2018 Assessment & Plan (1) Gastrointestinal hemorrhage with melena: -Gastrointestinal bleeding, initially black stool then bright red blood per rectum. INR is supratherapeutic on admission. Received IV vitamin K 10mg in the Emergency Room. Also given Kcentra -s/p EGD on 09/24/18l hematin was found in the entire examined stomach and red blood in the proximal esophagus; localized moderately friable mucosa with spontaneous bleeding was found in the gastric fundus and coagulation for hemostasis using argon plasma; localized nodular mucosa was found in the gastric fundus at the region of the hemorrhage -follow up biopsies of the gastrum -possibly that the GI bleed due to likely coagulopathy which is multifactorial iatrogenic and liver affection with metastatic lung cancer -give IV protonics and oral sucralfate -monitor CBC Elevated INR -possibly that the GI bleed due to likely coagulopathy which is multifactorial iatrogenic and liver affection with metastatic lung cancer -monitor INR oncology diagnosis: -Right lower lobe lung cancer (adenocarcinoma), S/P surgery in December 2015, T1a N1a M0, stage IIB, remained under pleasant since then -Now she has multiple liver lesions which has raised the possibility of metastatic disease, FNA from the 1 of the liver lesion confirmed well- differentiated adenocarcinoma, lung is considered as a primary site. No additional tissue is available for the testing, no PD L1 testing done. -as per oncology consultation: She is not a candidate for any kind of systemic treatment for cancer diagnosis. History of nonischemic cardiomyopathy, ejection fraction of 35% in 2013 and repeat echo in 11/2015 showed an ejection fraction of 42%. Initially she had ICD placement. -Hold all antihypertensives -Hold statins UTI -ceftriaxone History of Inclusion body myositis: History of Depression? -monitor mental status DVT prophylaxis with SCDs for now Deep venous thrombosis prophylaxis, sequential compression devices for now. Code Status is DNR/DNI will seek palliative care consultation as patient's family has expressed interest in hospice care daughter [phone] Subjective Patient s/p upper endoscopy and reports that she feels less abdomen pain. Patient able to tolerate diet. She is verbal but not oriented to year and in discussion with ICU physician , patient does not appear to be able complicated medical decisions. Patient's family had discussion with intensive care unit physician about overall poor prognosis of the cancer and other health issues. Physical Exam Constitutional: + thin Eyes: PERRL, conjunctivae normal, anicteric sclerae EOM intact bilaterally ENMT: external ear and nose normal, oropharynx normal Neck: trachea midline, no thyromegaly normal visual inspection Respiratory: normal respiratory effort, lungs clear to auscultation Cardiovascular: Rate/Rhythm: regular rhythm and + tachycardic Gastrointestinal (Abdomen): Inspection/Auscultation: normal bowel sounds Percussion/Palpation: abdomen soft Musculoskeletal: Head/Neck/Chest: normocephalic and head atraumatic Neurologic: PERRL, EOMI, accommodation nl, no face palsy, no dysarthria Psychiatric: Orientation: alert and cooperative Results & Data Vital Signs (Past 12 Hours) Vital Signs Temp Pulse Pulse Resp BP BP BP 09/24/18 18:00 105 H 22 108/56 L 09/24/18 17:00 106 H 18 106/59 L 09/24/18 16:00 36.9 C 109 H 17 100/65 09/24/18 15:55 108 H 22 87/62 L 09/24/18 15:00 105 H 26 H 09/24/18 14:00 105 H 13 96/48 L 09/24/18 13:00 104 H 17 110/61 09/24/18 12:28 106 H 22 107/70 09/24/18 12:13 106 H 18 92/79 L 09/24/18 11:58 62 18 108/68 09/24/18 09:36 36.6 C 105 H 16 116/62 09/24/18 08:00 36.5 C 100 H 17 96/59 L 09/24/18 07:00 102 H 24 105/56 L Pulse Ox 09/24/18 18:00 100 09/24/18 17:00 100 09/24/18 16:00 100 09/24/18 15:55 100 09/24/18 15:00 100 09/24/18 14:00 100 09/24/18 13:00 99 09/24/18 12:28 100 09/24/18 12:13 100 09/24/18 11:58 100 09/24/18 09:36 95 09/24/18 08:00 100 09/24/18 07:00 100
[2018-09-24] MEDS: TRAMADOL HCL 50 MG TABLET PO PRN (19:39)
[2018-09-24 20:07] LABS: Prothrombin Time 19.6 Seconds (9.0-12.0)
[2018-09-24] MEDS: MIRTAZAPINE TAB 15 MG TAB PO SCH (20:22)
[2018-09-24] MEDS: SUCRALFATE 1 GM/10 ML UDC PO SCH (20:22)
[2018-09-24 20:41] LABS: Basophils # (auto) 0.02 K/uL (0-0.2); Basophils % (auto) 0.1 %; Echinocytes 2+; Eosinophils # (auto) 0.08 K/uL (0-0.5); Eosinophils % (auto) 0.5 %; Immature Granulocytes # (auto) 0.28 K/uL (0.00-0.02); Immature Granulocytes % (auto) 1.6 %; Lymphocytes # (auto) 0.58 K/uL (1.2-3.4); Lymphocytes % (auto) 3.3 %; Mean Corpuscular Hgb Conc 33.1 g/dL (32-36); Mean Platelet Volume 12.3 fL (7.4-10.4); Monocytes # (auto) 1.95 K/uL (0.11-0.59); Monocytes % (auto) 11.1 %; Neutrophils # (auto) 14.67 K/uL (1.4-6.5); Neutrophils % (auto) 83.4 %; Nucleated RBC # (auto) 0.29 K/uL (0-0); Nucleated RBC % (auto) 1.6 %; Platelet Count 36 K/uL (130-400); Platelet Estimate Decreased (Normal); Polychromasia 1+
[2018-09-24 20:46] LABS: Hematocrit (blood only) 30.2 % (37-47); RDW Coefficient of Variation 15.7 % (11.5-14.5); RDW Standard Deviation 50.3 fL (36.4-46.3); Red Blood Count 3.18 M/uL (4.2-5.4); White Blood Count 17.58 K/uL (4.8-10.8)
[2018-09-25] MEDS: TRAMADOL HCL 50 MG TABLET PO PRN (00:58)
[2018-09-25] MEDS: D5W AND LACTATED RINGERS 1,000 ML IV SCH (01:23)
[2018-09-25] MEDS: PANTOprazole 40 MG in DEXTROSE 5% 100 ML IV SCH ×2 (04:08→09:12)
[2018-09-25 04:48] LABS: Hematocrit (blood only) 27.1 % (37-47); Mean Corpuscular Hgb Conc 33.2 g/dL (32-36); Mean Corpuscular Volume 93.4 fL (80-100); Nucleated RBC # (auto) 0.17 K/uL (0-0); Nucleated RBC % (auto) 1.4 %; RDW Coefficient of Variation 16.1 % (11.5-14.5); RDW Standard Deviation 49.3 fL (36.4-46.3); White Blood Count 12.05 K/uL (4.8-10.8)
[2018-09-25 04:53] LABS: Mean Platelet Volume 11.2 fL (7.4-10.4); Platelet Count 31 K/uL (130-400)
[2018-09-25 05:11] LABS: Partial Thromboplastin Ratio 1.7; Prothrombin Time 19.4 Seconds (9.0-12.0)
[2018-09-25 05:14] LABS: Albumin Level 2.2 gm/dl (3.4-5.0); BUN Creatinine Ratio 44.7 (10-20); Creatinine Clr Calc Pharmacy 71.6 ml/min; Est GFR (African American) 103.4; Est GFR (Non-African American) 89.2; Magnesium 1.6 mg/dl (1.8-2.4); Potassium 4.2 mmol/L (3.5-5.1)
[2018-09-25 05:23] LABS: Bilirubin,Total 2.9 mg/dl (0.2-1); Globulin 2.1 gm/dl (2.5-4.0); Total Protein 4.3 gm/dl (6.4-8.2); Troponin I 0.117 ng/ml (0-0.045)
[2018-09-25 05:31] LABS: Partial Thromboplastin Time 45.4 Seconds (21.0-31.0)
[2018-09-25] MEDS ORDERED: SODIUM PHOSPHATE 3 MMOL/1 ML INFUSION IV STA (05:32)
[2018-09-25] MEDS ORDERED: SODIUM PHOSPHATE 30 MMOL in SODIUM CHLORIDE 0.9% 500 ML IV ONE (05:45)
[2018-09-25] MEDS: MAGNESIUM SULFATE / D5W 1 GM/100 ML BAG IV SCH ×2 (06:20→07:33)
[2018-09-25 06:25] LABS: Basophils # (auto) 0.01 K/uL (0-0.2); Basophils % (auto) 0.1 %; Echinocytes 1+; Eosinophils % (auto) 1.7 %; Giant Platelets 1+; Immature Granulocytes # (auto) 0.18 K/uL (0.00-0.02); Immature Granulocytes % (auto) 1.5 %; Lymphocytes # (auto) 0.74 K/uL (1.2-3.4); Lymphocytes % (auto) 6.1 %; Monocytes # (auto) 1.07 K/uL (0.11-0.59); Monocytes % (auto) 8.9 %; Neutrophils # (auto) 9.85 K/uL (1.4-6.5); Neutrophils % (auto) 81.7 %; Polychromasia 1+; Toxic Vacuolation 3+
--- NOTE | 2018-09-25 08:04 | Anesthesiology Progress Note ---
Date of Service September 25, 2018 Anesthesia Post Procedure Vital Signs Vital Signs: Temp Pulse Pulse Resp BP BP BP 09/25/18 06:00 97 H 20 101/50 L 09/25/18 04:00 36.6 C 103 H 22 100/50 L 09/25/18 02:00 106 H 22 118/62 09/25/18 00:00 36.5 C 109 H 16 107/65 09/24/18 22:00 108 H 16 103/61 09/24/18 20:00 36.7 C 107 H 20 119/69 09/24/18 19:00 105 H 26 H 116/53 L 09/24/18 18:00 105 H 22 108/56 L 09/24/18 17:00 106 H 18 106/59 L 09/24/18 16:00 36.9 C 109 H 17 100/65 09/24/18 15:55 108 H 22 87/62 L 09/24/18 15:00 105 H 26 H 09/24/18 14:00 105 H 13 96/48 L 09/24/18 13:00 104 H 17 110/61 09/24/18 12:28 106 H 22 107/70 09/24/18 12:13 106 H 18 92/79 L 09/24/18 11:58 62 18 108/68 09/24/18 09:36 36.6 C 105 H 16 116/62 Pulse Ox Pulse Ox 09/25/18 06:00 99 09/25/18 04:00 100 09/25/18 02:00 100 09/25/18 00:00 100 09/24/18 22:00 100 09/24/18 20:00 100 100 09/24/18 19:00 100 09/24/18 18:00 100 09/24/18 17:00 100 09/24/18 16:00 100 09/24/18 15:55 100 09/24/18 15:00 100 09/24/18 14:00 100 09/24/18 13:00 99 09/24/18 12:28 100 09/24/18 12:13 100 09/24/18 11:58 100 09/24/18 09:36 95 Pain Intensity Bilateral Abdomen: Pain Intensity: 8 Notes Mental Status: alert / awake / arousable and participated in evaluation Patient Amnestic to Procedure: Yes Nausea / Vomiting: adequately controlled Pain: adequately controlled and improving with treatment Airway Patency, RR, SpO2: stable & adequate BP & HR: stable & adequate Hydration State: stable & adequate Anesthetic Complications: no major complications apparent
[2018-09-25] MEDS ORDERED: PHYTONADIONE PED 1 MG/0.5ML AMP/SYRG SQ SCH (09:00)
[2018-09-25] MEDS ORDERED: PHYTONADIONE 5 MG TAB PO SCH (09:00)
[2018-09-25] MEDS: SUCRALFATE 1 GM/10 ML UDC PO SCH ×4 (09:01→20:20)
[2018-09-25] MEDS ORDERED: MoRPHine SULFATE 5 MG/0.25 ML UDP PO PRN ×3 (09:39→14:00)
--- NOTE | 2018-09-25 09:51 | Palliative Care Consultation ---
Date of Consultation September 25, 2018 Assessment & Plan (1) Goals of care, counseling/discussion: -77 year old female with PMH lung cancer s/p lobectomy in 2016, ischemic cardiomyopathy, AICD placement, and others, presented to the hospital with GI bleed. She was admitted to the ICU and underwent EGD which showed a suspicious gastric lesion which was biopsied. Results pending. Patient had just had a fine needle aspiration of the liver as an outpatient on 09/05, which has now come back as poorly differentiated adenocarcinoma-- possibly recurrent lung cancer. Patient's overall performance status is quite poor. She is extremely weak and deconditioned. Albumin is 1.8. Patient and her , Conor, state that they do not want any heroic measures including any treatment for the cancer. Palliative care consulted. -Met at length with patient and her , Conor. Patient is awake, alert and or iented but does have periods of confusion/forgetfulness. -Patient has made decision to transition to NIGHT TIME NANNY: no abx, no IVF, stop protonix and all unneccessary medications that are unrelated to comfort. NO lab draws. Transfer out of ICU. -Roxanol 5mg PO/SL Q3h PRN pain or SOB. -Dr. Richards aware of patietn's wishes and plan. -Talked extensively about home hospice vs. [facility]IP hospice. Will depend on patient's symptom management needs and stability for transfer. requested referral to [facility] for now-- case management did send referral. -Will continue to follow and further discussion to follow regarding discharge plan. (2) Lung cancer: (3) Liver metastases: (4) Elevated LFTs: (5) Gastrointestinal hemorrhage with melena: Supervising Physician Co-Signing Physician Notes Chart reviewed, patient seen and examined. Collaborated with NAVJOT Guillen Patient's and daughter at bedside. Patient complaining of bilateral foot pain due to lower extremity ischemia-stated that current dose of Roxanol at 5 mg was not adequately controlling the pain-we will give the patient an option of 5 mg for mild to moderate pain and 10 mg for severe pain. Went back to reassess patient later in the evening-patient did receive a 10 mg dose and reported adequate pain control. Patient slightly drowsy but easily aroused. PE: Patient awake alert, more comfortable after 10 mg dose of Roxanol HEENT: EOMI, hearing within normal limits Respirations: Unlabored CV: Tachycardic Abdomen: Not distended Extremities: Severe mottling both feet, increased mottling at the knees, hands also cool to touch. Neuro: Patient alert and oriented x4 Agree with above note, assessment and plan as per NAVJOT Guillen-patient and family agreeable to turning off the AICD as patient approaches end of life. History of Present Illness Attending Physician: Matt Richards MD History of Present Illness This 77 year old female with PMH lung cancer s/p lobectomy in 2016, ischemic cardiomyopathy, AICD placement, and others, presented to the hospital with GI bleed. She was admitted to the ICU and underwent EGD which showed a suspicious gastric lesion which was biopsied. Results pending. Patient had just had a fine needle aspiration of the liver as an outpatient on 09/05, which has now come back as poorly differentiated adenocarcinoma-- possibly recurrent lung cancer. Patient's overall performance status is quite poor. She is extremely weak and deconditioned. Albumin is 1.8. Patient and her , Conor, state that they do not want any heroic measures including any treatment for the cancer. Palliative care consulted. Thank you kindly for this consult. I will follow. Allergies Allergy/AdvReac Type Severity Reaction Status Date / Time No Known Allergies Allergy Verified 09/22/18 16:34 Home Medications Home Medications Medication Instructions Recorded Confirmed Type mirtazapine 15 mg PO HS 09/22/18 09/22/18 History tramadol 100 mg PO Q6H PRN 09/22/18 09/22/18 History Patient History Medical History Gastrointestinal hemorrhage with melena Lung mass Lower GI bleed (Acute) Elevated INR (Acute) Anemia (Acute) Bundle branch block DVT (deep venous thrombosis) on coumadin Non-ischemic cardiomyopathy s/p AICD placement Thrombocytopenia Cardiac defibrillator in place (Acute) TTE 2016 EF: 42% H/O: lung cancer (Acute) with mets Surgical History S/P implantation of automatic cardioverter/defibrillator (AICD) History of appendectomy (Acute) History of cholecystectomy (Acute) Social History Preferred Language: Khmer Communication Ability: Impaired Monumental Stonemason Required: No Beliefs That Will Affect Care: None Current Living Situation: Spouse and Family Current Living Situation Comment: Lives with daughter. Other Information That Helps Us Care for You: No Feels Safe at Home: Yes Safety Concerns: Feels Safe At This Time Smoking Status: Current some day smoker (HISTORY OF 1PPD X 63 YEARS) Tobacco Type: cigarettes Cigarettes Per Day: 1-2 Do You Dip or Chew Tobacco: No Tobacco Cessation Education Requested by Patient: No Hx Alcohol Use: Yes Alcohol type: wine Hx Substance Use: No Review of Systems Constitutional: + weakness (severe) Ear, Nose, Mouth, Throat: + hearing loss (chronic and stable) Respiratory: no cough and no dyspnea Cardiovascular: + edema (LUE); no chest pain Gastrointestinal: + abdominal pain; no nausea Neurologic: + confusion ( reports periods of confusion/forgetfulness) Psychiatric: no depression and no anxiety Physical Exam Constitutional: + ill appearing; no acute distress ENMT: Ears: + hearing impairment Respiratory: normal respiratory effort, lungs clear to auscultation Cardiovascular: Rate/Rhythm: regular rate and regular rhythm Vessels: dorsalis pedis pulses present Gastrointestinal (Abdomen): Inspection/Auscultation: normal bowel sounds; + abdomen abnormal to inspection Percussion/Palpation: + hepatomegaly; abdomen nontender (nontender during palpation, but does have abdominal pain at times) and + abdomen not soft (firm) Skin: + mottling (mild on bilateral knees) Purpling of bilateral feet-- appears ischemic but does have strong pedal pulses Erythema and edema to left AC area from failed IV site Neurologic: moves all extremities and awake; not confused Psychiatric: Orientation: alert and oriented x 3 (periods of confusion) Results & Data Vital Signs (Past 12 Hours) Vital Signs Temp Pulse Pulse Resp BP BP Pulse Ox 09/25/18 09:00 105 H 16 108/57 L 100 09/25/18 08:00 36.4 C L 102 H 24 111/61 99 09/25/18 07:02 99 H 23 100 09/25/18 06:00 97 H 20 101/50 L 99 09/25/18 04:00 36.6 C 103 H 22 100/50 L 100 09/25/18 02:00 106 H 22 118/62 100 09/25/18 00:00 36.5 C 109 H 16 107/65 100 09/24/18 22:00 108 H 16 103/61 100 Time Spent Midlevel 145 minutes with >50% of time spent at bedside with patient and family, as well as ICU staff/IDT, to discuss condition, case, comfort measures, and GOC. Attending Time spent additional 30 minutes to the 145 minutes spent by NAVJOT Lloyd for a total of 175 minutes with greater than 50% of the time spent at bedside evaluating pain control as well as discussing comfort measures and goals of care
[2018-09-25] MEDS ORDERED: PHYTONADIONE 2.5 MG in SODIUM CHLORIDE 0.9% 50 ML IV SCH (10:00)
--- NOTE | 2018-09-25 10:20 | Hospitalist Progress Note ---
Date of Service September 25, 2018 Assessment & Plan (1) Gastrointestinal hemorrhage with melena: -Gastrointestinal bleeding, initially black stool then bright red blood per rectum. INR is supratherapeutic on admission. Received IV vitamin K 10mg in the Emergency Room. Also given Kcentra -s/p EGD on 09/24/18l hematin was found in the entire examined stomach and red blood in the proximal esophagus; localized moderately friable mucosa with spontaneous bleeding was found in the gastric fundus and coagulation for hemostasis using argon plasma; localized nodular mucosa was found in the gastric fundus at the region of the hemorrhage -follow up biopsies of the gastrum -possibly that the GI bleed due to likely coagulopathy which is multifactorial iatrogenic and liver affection with metastatic lung cancer -was given IV protonics and oral sucralfate -09/25/18: Patient and opting for comfort care measures and plans for hospice. Patient and decline further workup or lab draws or IV antibiotics -will continue protonix as oral and continue oral sucralfate Elevated INR -possibly that the GI bleed due to likely coagulopathy which is multifactorial iatrogenic and liver affection with metastatic lung cancer -monitor INR oncology diagnosis: -Right lower lobe lung cancer (adenocarcinoma), S/P surgery in December 2015, T1a N1a M0, stage IIB, remained under pleasant since then -Now she has multiple liver lesions which has raised the possibility of metastatic disease, FNA from the 1 of the liver lesion confirmed well- differentiated adenocarcinoma, lung is considered as a primary site. No additional tissue is available for the testing, no PD L1 testing done. -as per oncology consultation: She is not a candidate for any kind of systemic treatment for cancer diagnosis -ceftriaxone stopped on 09/25/18 -09/25/18 Patient and opting for comfort care measures and plans for hospice Thrombocytopenia -Platelets in the 30K -09/25/18: Patient and opting for comfort care measures and plans for hospice. Patient and decline further workup or lab draws or IV a ntibiotics likely Peripheral artery disease -cold lower extremities and mottling of the feet likely due to poor blood flow or bruising -Patient and opting for comfort care measures and plans for hospice. Patient and decline further workup the cold lower extremities History of nonischemic cardiomyopathy, ejection fraction of 35% in 2013 and repeat echo in 11/2015 showed an ejection fraction of 42%. Initially she had ICD placement. -Hold all antihypertensives -Hold statins UTI -ceftriaxone stopped on 09/25/18 -09/25/18 Patient and opting for comfort care measures and plans for hospice. Patient and decline further workup or lab draws or IV antibiotics History of Inclusion body myositis History of Depression? -monitor mental status DVT prophylaxis with SCDs if patient agrees Code Status is DNR/DNI Comfort care measures only status as of 09/25/18 and patient to be transferred from ICU with plans for hospice; will follow palliative care recommendations Conor ([phone], ) daughter [phone] Subjective Patient was seen and examined in the ICU with Conor ([phone], ). Patient is comfortable. denies acute abdomen pain. mildly tachycardic. breathing on room air comfortably. We talked at length about patient's cancer diagnosis and how the liver cancer increases the risk of re- bleeding. Patient and opting for comfort care measures and plans for hospice. Patient and decline further workup or lab draws or IV antibiotics including for workup of the the cold lower extremities Physical Exam Constitutional: + thin Eyes: PERRL, conjunctivae normal, anicteric sclerae EOM intact bilaterally ENMT: external ear and nose normal, oropharynx normal Neck: trachea midline, no thyromegaly normal visual inspection Respiratory: normal respiratory effort, lungs clear to auscultation Cardiovascular: Rate/Rhythm: regular rhythm and + tachycardic Gastrointestinal (Abdomen): Inspection/Auscultation: normal bowel sounds Percussion/Palpation: abdomen soft Musculoskeletal: Head/Neck/Chest: normocephalic and head atraumatic Extremities: + lower extremity abnormal to inspection (cold lower extremities and mottling of the feet) Neurologic: PERRL, EOMI, accommodation nl, no face palsy, no dysarthria Psychiatric: Orientation: alert and cooperative Results & Data Vital Signs (Past 12 Hours) Vital Signs Temp Pulse Pulse Resp BP BP Pulse Ox 09/25/18 09:00 105 H 16 108/57 L 100 09/25/18 08:00 36.4 C L 102 H 24 111/61 99 09/25/18 07:02 99 H 23 100 09/25/18 06:00 97 H 20 101/50 L 99 09/25/18 04:00 36.6 C 103 H 22 100/50 L 100 09/25/18 02:00 106 H 22 118/62 100 09/25/18 00:00 36.5 C 109 H 16 107/65 100
[2018-09-25] MEDS: PANTOprazole 40 MG TAB PO SCH (11:17)
[2018-09-25] MEDS ORDERED: MoRPHine SULFATE 2 MG/ML CARP IV PRN (13:44)
[2018-09-25] MEDS ORDERED: MoRPHine SULFATE 2 MG/ML CARP IV STA (13:51)
[2018-09-25] MEDS: MoRPHine SULFATE 10 MG/0.5 ML UDP PO PRN (20:45)
[2018-09-26] MEDS: MoRPHine SULFATE 10 MG/0.5 ML UDP PO PRN ×5 (02:30→19:14)
[2018-09-26] MEDS: SUCRALFATE 1 GM/10 ML UDC PO SCH ×4 (09:31→23:53)
[2018-09-26] MEDS: PANTOprazole 40 MG TAB PO SCH (09:31)
--- NOTE | 2018-09-26 10:36 | Hospitalist Progress Note ---
Date of Service September 26, 2018 Assessment & Plan (1) Gastrointestinal hemorrhage with melena: -Gastrointestinal bleeding, initially black stool then bright red blood per rectum. INR is supratherapeutic on admission. Received IV vitamin K 10mg in the Emergency Room. Also given Kcentra -s/p EGD on 09/24/18l hematin was found in the entire examined stomach and red blood in the proximal esophagus; localized moderately friable mucosa with spontaneous bleeding was found in the gastric fundus and coagulation for hemostasis using argon plasma; localized nodular mucosa was found in the gastric fundus at the region of the hemorrhage -follow up biopsies of the gastrum -possibly that the GI bleed due to likely coagulopathy which is multifactorial iatrogenic and liver affection with metastatic lung cancer -was given IV protonics and oral sucralfate -09/25/18: Patient and opting for comfort care measures and plans for hospice. Patient and decline further workup or lab draws or IV antibiotics -continue protonix as oral and continue oral sucralfate as this may provide comfort Elevated INR -possibly that the GI bleed due to likely coagulopathy which is multifactorial iatrogenic and liver affection with metastatic lung cancer -monitor INR oncology diagnosis: -Right lower lobe lung cancer (adenocarcinoma), S/P surgery in December 2015, T1a N1a M0, stage IIB, remained under pleasant since then -Now she has multiple liver lesions which has raised the possibility of metas tatic disease, FNA from the 1 of the liver lesion confirmed well-differentiated adenocarcinoma, lung is considered as a primary site. No additional tissue is available for the testing, no PD L1 testing done. -as per oncology consultation: She is not a candidate for any kind of systemic treatment for cancer diagnosis -ceftriaxone stopped on 09/25/18 -09/25/18 Patient and opting for comfort care measures and plans for hospice Thrombocytopenia Peripheral artery disease -Platelets in the 30K when last checked in the ICU -09/25/18: Patient and opting for comfort care measures and plans for hospice. Patient and decline further workup or lab draws or IV antibiotics -cold lower extremities and mottling of the feet likely due to poor blood flow or bruising -Patient and opting for comfort care measures and plans for hospice. Patient and decline further workup the cold lower extremities -09/26/18: patient noted to have more discoloration of lower extremities, also bluish discoloration of the nose and hands, hands are cold as well; likely that thrombocytopenia also contributory to abnormal color History of nonischemic cardiomyopathy, ejection fraction of 35% in 2013 and repeat echo in 11/2015 showed an ejection fraction of 42%. Initially she had ICD placement. -Hold all antihypertensives -Hold statins UTI -ceftriaxone stopped on 09/25/18 -09/25/18 Patient and opting for comfort care measures and plans for hospice. Patient and decline further workup or lab draws or IV antibiotics History of Inclusion body myositis History of Depression? -monitor mental status -mood is stable Comfort care measures only status as of 09/25/18 and patient transferred from ICU with plans for hospice -following pallitiave care recommendations on pain control management Code Status is DNR/DNI Conor ([phone], ) daughter [phone] Subjective Patient seen this AM. she is awake and alert and not in distress. There is more dark and bluish discoloration of the lower extremities. This discolorations also noted of the hands. hands and lower extremities are cold to the touch. there is blue discoloration of the tip of the nose. Patient denies having acute pain. No shortness of breath. Is breathing on room air. She reports she feels thirsty. There are fluids at the bedside. Patient daughter also in the room Physical Exam Constitutional: + thin Eyes: PERRL, conjunctivae normal, anicteric sclerae EOM intact bilaterally ENMT: Nose: + external nose abnormality (blue discoloration at tip of the nose) Neck: trachea midline, no thyromegaly normal visual inspection Respiratory: normal respiratory effort, lungs clear to auscultation Cardiovascular: Rate/Rhythm: regular rhythm and + tachycardic Gastrointestinal (Abdomen): Inspection/Auscultation: normal bowel sounds Percussion/Palpation: abdomen soft Musculoskeletal: Head/Neck/Chest: normocephalic and head atraumatic Extremities: + hand abnormality (hands are bluish in color and cold) and + lower extremity abnormal to inspection (cold lower extremities and mottling of the feet) Neurologic: PERRL, EOMI, accommodation nl, no face palsy, no dysarthria Psychiatric: Orientation: alert and cooperative
[2018-09-26] MEDS: LORazepam 0.25 MG/0.5 ML VIAL IV PRN ×2 (11:45→17:10)
--- NOTE | 2018-09-26 15:07 | Palliative Care Progress Note ---
Date of Service September 26, 2018 Assessment & Plan (1) Goals of care, counseling/discussion: -Pt is a 77 year old female with PMH lung cancer s/p lobectomy in 2016, ischemic cardiomyopathy, AICD placement -now deactivated, presented to the hospital with GI bleed. She was admitted to the ICU and underwent EGD which showed a suspicious gastric lesion which was biopsied. Results negative for malignancy. Patient had just had a fine needle aspiration of the liver as an outpatient on 09/05, which showed poorly differentiated adenocarcinoma-- possibly recurrent lung cancer. Patient's overall performance status is quite poor. She is extremely weak and deconditioned. Albumin is 1.8. -Met at length with patient's daughter who just arrived from out of town today- discussed end-of-life issues at length -Patient now on SALES LEDGER CLERK: no abx, no IVF, stop protonix and all unneccessary medications that are unrelated to comfort. NO lab draws. -Roxanol 5mg PO/SL Q3h PRN pain or SOB. -Will continue to follow and provide support to family as patient approaches end of life (2) Lung cancer: (3) Liver metastases: (4) Elevated LFTs: (5) Gastrointestinal hemorrhage with melena: (2) Lung cancer: (3) Liver metastases: (4) Elevated LFTs: (5) Gastrointestinal hemorrhage with melena: Subjective Patient seen on 2 separate visits. Initial visit no family or friends at bedside, patient's daughter present on second visit.-patient was minimally responsive after recently receiving a PRN Ativan at 0.25 mg for restlessness and agitation. Patient appears comfortable, mottling increasing, patient with cold extremities. Patient required 3 PRN Roxanol at 10 mg a dose in the past 12 hours. Pain control improved with increased dose of Roxanol. Review of Systems Review of Systems: Unobtainable due to reduced consciousness Physical Exam Physical Exam: PE: Patient appears comfortable, in no acute distress HEENT: Dry mucous membranes Respirations: Unlabored CV: Tachycardic Abdomen: Soft, diminished bowel sounds Extremities lower extremities cold to above the knee, mottling of the feet as well as knees. Upper extremities cold to the level of the shoulders bilaterally. Neuro: Patient minimally responsive to voice and touch Time Spent Attending Total time spent on 2 separate visits is 45 minutes with greater than 50% of the time spent at bedside discussing with patient's daughter her current condition and status as well as end-of-life issues and providing emotional support
[2018-09-26] MEDS ORDERED: MoRPHine SULFATE 2 MG/ML CARP IV PRN ×2 (20:24→20:39)
[2018-09-26] MEDS ORDERED: LORazepam 0.5 MG/1 ML VIAL IV PRN (20:25)
--- NOTE | 2018-09-27 08:44 | Discharge Summary ---
Date of Service September 27, 2018 Admission HPI Per Admitting Provider CHIEF COMPLAINT: GI bleed. HISTORY OF PRESENT ILLNESS: A 77-year-old female with past medical history significant for hyperlipidemia, interstitial lung disease, hypertension, GERD, inclusion body myositis, osteoporosis, major depression. The patient with status post right lower lobectomy and mediastinal lymph node dissection on 12/2015 when she was found to have right lower lobe spiculated nodule on 10/2015. It was adenocarcinoma and recently she had a followup CT scan of the chest showed multiple liver lesions and she is status post biopsy of liver mass on 09/05/2018. Currently, initial pathology shows poorly differentiated adenocarcinoma. Initial right lower lobe lesion was noted to be of nonsmall cell lung cancer stage IIa, supposed to follow with Hematology/Oncology coming week. The patient also has nonischemic cardiomyopathy with alternating bundle branch block and beta yuliya intolerance causing lightheadedness. In 06/2013 her EF was 35%, status post ICD. There was presumed cardioembolic phenomena involving lower extremities in the setting of dilated cardiomyopathy and anterior apical scarring and she is on Coumadin and recent echo in 11/2015 showed EF of 42%. Presents with GI bleed.The patient says she initially had some black stools and then started to have a lot of bright red per rectum whole night last night and then also today morning. Right now the bleeding seems to have stopped. Hemoglobin dropped from 13.5 to 10.6 in the last few days. Blood pressure was on lower side. The patient denies any nausea, no vomiting, no chest pain, no shortness of breath, has some dry cough with whitish phlegm. No headache, no blurred vision, no earache, no runny nose, no sore throat. Has poor appetite since July 28. She thinks she lost a lot of weight. Normal bladder movements. She thought she might have a short period of hematuria but that has stopped now. No swelling in lower extremities. Ambulates with a cane in the home and with the walker when she goes outside.Complains of having pain in her right upper abdomen below the ribcage and radiating to back. She is taking pain medications regularly. As per daughter, the patient says since last 2 weeks she is taking only Remeron, Coumadin and pain medications. Stopped taking all other medications and as she was told to stop rest of the medications by [facility]. The patient's INR was unmeasurable in the ER, she was given IV vitamin K 10 mg. ALLERGIES: No known drug allergies. PAST MEDICAL HISTORY: As mentioned above. PAST SURGICAL HISTORY: Colonoscopy, EGDs, defibrillator placement, insertion of lens prosthesis, muscle biopsy of the right leg, cholecystectomy. MEDICATIONS: Supposed to be on tramadol 50 mg every 6 hours p.r.n., cephalexin 333 mg daily, Remeron 50 mg p.o. at bedtime, oxycodone 5 mg every 6 hours p.r.n., Wellbutrin 150 mg p.o. b.i.d., Prilosec 20 mg daily, Prozac 10 mg p.o. daily, warfarin 4 mg as directed, buspirone 10 mg p.o. b.i.d., Coreg 3.125 mg p.o. b.i.d., vitamin D 1000 units p.o. daily, vitamin B12 1000 mcg daily, aspirin 81 mg p.o. daily, but the patient currently taking only Remeron, Coumadin and pain medications. FAMILY HISTORY: Significant for mother had CHF. Father, lung cancer. SOCIAL HISTORY: , lives with her and daughter, has smoked 0.1 pack a day for 30 years. Alcohol occasional. No drug use. REVIEW OF SYMPTOMS: As per HPI. Rest of review of systems negative. Admission Exam Per Admitting Provider PHYSICAL EXAMINATION: GENERAL: The patient is of moderate build, not in acute distress. VITAL SIGNS: Temperature 36.6, pulse 96, respiratory rate 15, blood pressure 96/53, oxygen 93% room air. HEENT: No pallor, no icterus. Pupils equal, round, reactive to light. NECK: No neck mass, no carotid bruit. CARDIOVASCULAR: S1, S2 heard, regular rate and rhythm, no murmur, no gallop. RESPIRATORY SYSTEM: Normal AP diameter. No accessory muscle use. No wheezing, no crackles. ABDOMEN: Soft, bowel sounds present. Mild discomfort in the right upper quadrant. No guarding, no rigidity. No distention. CENTRAL NERVOUS SYSTEM: Cranial nerves II-XII grossly nonfocal. EXTREMITIES: No edema, no erythema. Principal Diagnosis (time of pronounced on 09/27/18 at 6:11 AM) Cause of as Gastrointestinal hemorrhage secondary to Coagulopathy due to Right lower lobe lung cancer with Metastasis to Liver. Patient was on comfort care measures only status at time of with comfort measures started on 09/25/18 Discharge Data Allergies Allergy/AdvReac Type Severity Reaction Status Date / Time No Known Allergies Allergy Verified 09/22/18 16:34 Consultations 09/22/18 16:39 ED Decision to Admit Stat 09/22/18 20:17 Consult Case Management - Discharge Planning Routine Consult Intake Coordinator Routine 09/23/18 07:00 Consult Gastroenterology Routine 09/23/18 14:40 Consult Palliative Care Routine 09/24/18 08:52 Consult Oncology Routine Procedures Performed Operation Date: 09/24/18 10:15 Actual Procedures p EGD Hemostasis - Jeremy Quiñones Ordered Studies 09/22/18 14:42 CT abd pelvis IV con only Stat 09/24/18 13:03 US abdomen limited Stat Hospital Course (1) Gastrointestinal hemorrhage with melena: -Gastrointestinal bleeding, initially black stool then bright red blood per rectum. INR is supratherapeutic on admission. Received IV vitamin K 10mg in the Emergency Room. Also given Kcentra -s/p EGD on 09/24/18l hematin was found in the entire examined stomach and red blood in the proximal esophagus; localized moderately friable mucosa with spontaneous bleeding was found in the gastric fundus and coagulation for hemostasis using argon plasma; localized nodular mucosa was found in the gastric fundus at the region of the hemorrhage -follow up biopsies of the gastrum -possibly that the GI bleed due to likely coagulopathy which is multifactorial iatrogenic and liver affection with metastatic lung cancer -was given IV protonics and oral sucralfate -09/25/18: Patient and opting for comfort care measures and plans for hospice. Patient and decline further workup or lab draws or IV antibiotics -continue protonix as oral and continue oral sucralfate as this may provide comfort Elevated INR Coagulopathy Right lower lobe lung cancer Lung cancer with Metastasis to Liver -possibly that the GI bleed due to likely coagulopathy which is multifactorial iatrogenic and liver affection with metastatic lung cancer -monitor INR oncology diagnosis: -Right lower lobe lung cancer (adenocarcinoma), S/P surgery in December 2015, T1a N1a M0, stage IIB, remained under pleasant since then -Now she has multiple liver lesions which has raised the possibility of metasta tic disease, FNA from the 1 of the liver lesion confirmed well-differentiated adenocarcinoma, lung is considered as a primary site. No additional tissue is available for the testing, no PD L1 testing done. -as per oncology consultation: She is not a candidate for any kind of systemic treatment for cancer diagnosis -ceftriaxone stopped on 09/25/18 -09/25/18 Patient and opting for comfort care measures and plans for hospice Thrombocytopenia Peripheral artery disease -Platelets in the 30K when last checked in the ICU -09/25/18: Patient and opting for comfort care measures and plans for hospice. Patient and decline further workup or lab draws or IV antibiotics -cold lower extremities and mottling of the feet likely due to poor blood flow or bruising -Patient and opting for comfort care measures and plans for hospice. Patient and decline further workup the cold lower extremities -09/26/18: patient noted to have more discoloration of lower extremities, also bluish discoloration of the nose and hands, hands are cold as well; likely that thrombocytopenia also contributory to abnormal color History of nonischemic cardiomyopathy, ejection fraction of 35% in 2013 and repeat echo in 11/2015 showed an ejection fraction of 42%. Initially she had ICD placement. -Hold all antihypertensives -Hold statins UTI -ceftriaxone stopped on 09/25/18 -09/25/18 Patient and opting for comfort care measures and plans for hospice. Patient and decline further workup or lab draws or IV antibiotics History of Inclusion body myositis History of Depression? -monitor mental status -mood is stable Comfort care measures only status as of 09/25/18 and patient transferred from ICU with plans for hospice -following pallitiave care recommendations on pain control management Code Status is DNR/DNI ----- Patient was pronounced at 6:11 AM on 09/27/[address] Robin (see his note on exam at time of ) Principal Diagnosis Cause of as Gastrointestinal hemorrhage secondary to Coagulopathy due to Right lower lobe lung cancer with Metastasis to Liver. Patient was on comfort care measures only status at time of with comfort measures started on 09/25/18 --- Total Time Total Time Spent Total Time Spent (In Minutes): 10 Total Time Includes: Communication With Other Providers Discharge Plan Discharge Items Patient Disposition: Admission Data Admit Date/Time: 09/22/18 18:11 Attending Provider: Matt Richards Admit Provider: Carroll Robin Primary Care Provider: Catherine Fang Other Providers: Carroll Robin ; Dee Ramirez ; Yelena Stallworth ; Eugenia Cruz ; Dakotah Fang Service: Medical Other DC Date/Time DO NOT enter until pt leaves facility: 09/27/18 07:48
--- NOTE | 2018-09-27 09:32 | Death Summary ---
Date of Service September 27, 2018 Pronouncement Note Date and Time of Date of : 09/27/18 Time of : 06:11 Contributing Factors (1) Gastrointestinal hemorrhage with melena: Summary Additional details: Was notified patient . Seen and examined patient. Exam: Ge unresponsive Pupils Fixed and dilated and non reactive to light Neck No carotid pulse palpable CVS no heart sounds present on ascultation RS no spontaneous breathing seen, No breath sounds on ascultation. Patient pronounced at 6:11am today September 27 2018. was notified by nursing staff. Additional Data Confirmation of : no pulse, no respirations, no heart sounds and pupils fixed and dilated Family: contacted Attending physician: Matt Richards MD
--- NOTE | 2018-09-27 11:56 | Death Summary ---
Date of Service September 27, 2018 Pronouncement Note Date and Time of Date of : 09/27/18 Time of : 06:11 Contributing Factors (1) Gastrointestinal hemorrhage with melena: Additional Data Attending physician: Matt Richards MD
== END 2018-09-27 07:48 | disposition expired | DRG 813 ==
LOC: ED 14:23 → SUATTDRO 18:11 → 1E 18:11 → 2N 09-25 08:47